=== PATIENT | male | born 1985 | race Caucasian/White ===

== ENCOUNTER 2019-10-01 20:02 | Emergency (ER) | payer OTHER, SELFPAY ==
[2019-10-01 20:11] VITALS: BP 165/106; PULSE 56; RESP 14; TEMP 36.2; O2SAT 98; BMI 30.9
--- NOTE | 2019-10-01 20:16 | W.ED.ABDPA2 ---
HPI - Abdominal Pain General: Chief Complaint: Abdominal Pain Stated Complaint: abd pain Time Seen by Provider: 10/01/19 20:16 Source: patient Mode of arrival: ambulatory Limitations: no limitations History of Present Illness: HPI narrative: Patient comes in with 2-hour onset of sudden right flank pain radiating into the right groin. Patient also reported significant nausea and vomiting. Patient appears mildly unwell. Patient appears in moderate to severe pain. Review of Systems General: Reports: 10 or more systems reviewed and unremarkable except in HPI and below : Reports: flank pain Physical Exam Const: COMMON NORMALS: no acute distress and patient oriented x3 GENERAL APPEARANCE: cooperative HENMT: COMMON NORMALS: normocephalic and Normal external nose present HEAD & SCALP: normal to inspection and normocephalic NOSE: Normal external nose present MOUTH: Normal oral and palatal mucosa present Eye: GENERAL EYE: appearance normal, both eyes and all related structures Neck/C-Spine: COMMON NORMALS: full ROM Chest: COMMONS NORMALS: normal inspection of the chest Resp: COMMON NORMALS: normal respiratory effort EFFORT & INSPECTION: Yes able to speak in complete sentences Cardio: COMMON NORMALS: regular rate and regular rhythm RATE: regular rate RHYTHM: regular rhythm GI: COMMON NORMALS: non-tender : BLADDER/KIDNEY EXAM: Yes CVA tenderness on the right Back/Pelvis: COMMON NORMALS: thoracic and lumbar spine normal to inspection GENERAL BACK: Yes CVA tenderness Extremity: COMMON NORMALS: normal to inspection Neuro: COMMON NORMALS: patient oriented x3 and moves all extremities Psych: COMMON NORMALS: mental status grossly normal and cooperative Skin: COMMON NORMALS: no rashes or lesions noted GENERAL SKIN EXAM: no rashes or lesions noted Course Vital Signs: Vital signs: Vital Signs Temperature 97.2 F L 10/01/19 20:11 Pulse Rate 56 L 10/01/19 20:11 Respiratory Rate 18 10/01/19 20:47 Blood Pressure 165/106 10/01/19 20:11 Pulse Oximetry 98 10/01/19 20:47 MDM - Abdominal Pain MDM Narrative: Medical decision making narrative: Patient presents today with complaints of right flank pain radiating into the groin. Patient appears classic for a renal calculi. Differential diagnosis includes but not limited to renal calculi, pyelonephritis, appendicitis. Laboratory values noted a 16,000 white count urine was positive for blood, creatinine was 1.0. CT scan of the abdomen pelvis noted a 2 to 3 mm renal stone in the distal right ureter. Patient had good relief of pain with 4 mg of morphine, 15 mg Toradol, and 4 mg of Zofran IV. Patient was given 500 mils of saline due to nausea and vomiting at home. Recommended patient to continue pushing fluids and follow-up with urologist. Patient reports understanding of care plan and need for follow-up. Lab Data: Labs: Lab Results 10/01/19 10/01/19 10/01/19 Range/Units 20:32 20:32 20:33 WBC 16.8 H (4.0-10.0) 10^3/ uL RBC 5.30 (4.1-5.3) 10^6/u L Hgb 14.8 (11.7-16.6) g/dL Hct 45.5 (42.0-52.0) % MCV 85.8 (80-94) fL MCH 27.9 L (28.0-34.0) pg MCHC 32.5 (30.0-36.0) g/dL RDW 11.9 L (12.1-15.1) % Plt Count 441 H (130-400) 10^3/c mm MPV 9.0 (7.4-10.4) fL Neut % (Auto) 85.9 % Lymph % (Auto) 6.5 % [place] % (Auto) 6.3 % Eos % (Auto) 0.0 % Baso % (Auto) 0.5 % Neut # (Auto) 14.46 H (1.8-7.7) 10^3/u L Lymph # (Auto) 1.1 (0.8-4.8) 10^3/u L [place] # (Auto) 1.1 H (0.2-0.9) 10^3/u L Eos # (Auto) 0.0 (0.0-0.8) 10^3/u L Baso # (Auto) 0.1 (0.0-0.1) 10^3/u L Nucleated RBC % (a uto) 0 % Nucleated RBCs # 0.0 /100WBC Sodium 138 (136-145) mmol/L Potassium 3.9 (3.5-5.1) mmol/L Chloride 103 (98-107) mmol/L Carbon Dioxide 24 (22-29) mmol/L Anion Gap 14.9 (5-19) BUN 18 (6-20) mg/dL Creatinine 1.0 (0.7-1.2) mg/dL GFR Calculation 85.5 L (90-130) mL/min Glucose 130 H (65-115) mg/dL Calculated Osmolal ity 284 L (285-295) mOsm/k g Calcium 9.4 (8.5-10.5) mg/dL Urine Color Yellow (Yellow) Urine Appearance Clear (CLEAR) Urine pH 5 (5-7) Ur Specific Gravit y 1.030 (1.005-1.030) Urine Protein Neg (Negative) Urine Glucose (UA) Norm (Normal) Urine Ketones Negative (Negative) Urine Blood 2+ H (Negative) Urine Nitrate Negative (Negative) Urine Bilirubin Neg (NEGATIVE) Urine Urobilinogen Norm (Negative) mg/dL Ur Leukocyte Amanda ase Negative (Negative) Urine RBC 0-4 H (0-2) /hpf Urine WBC 0-4 H (0-5) /hpf Ur Squamous Epith Cells 0-4 H (0-5) Calcium Oxalate Cr ystal 5-10 H /hpf Amorphous Sediment Not Reportable Urine Bacteria Trace (NONE) Discharge Plan Discharge Patient Disposition: Home Clinical Impression: Calculus of kidney Condition: Stable Prescriptions: New hydrocodone-acetaminophen 5-325 mg tablet 1 tab PO Q6H PRN (Reason: pain) Qty: 20 RF: 0 tamsulosin 0.4 mg capsule 0.4 mg PO DAILY Qty: 10 RF: 0 ondansetron HCl 4 mg tablet 4 mg PO Q8H PRN (Reason: nausea and vomiting) Qty: 10 RF: 0 Discharge Orders: Discharge Order (Routine); Ordered 10/01/19 Ordered By: Sixto Navarro Referrals: Alec Gracia DO [Primary Care Provider] - Discharge Diet: Usual diet Discharge Activity: Increase activity as tolerated Patient Instructions: Renal Colic (ED) Activity Restrictions/Additional Instructions: Home and rest. Drink plenty of fluids. Use medications as directed. Follow-up with Dr. Sow's office in the morning. Case management will contact Dr. Sow office to help with follow-up. Follow-up with primary care as needed. Return to the emergency department for high fever or uncontrolled pain. Stand Alone Forms: Work/School Release Coding Level of Care Code ED Plastic Surgery Specialist for Chg Fwd Exam Comprehensive
[2019-10-01] MEDS: ketorolac 30 mg/mL INJ 15 MG IVP (20:30)
[2019-10-01] MEDS: ondansetron 2 mg/ML SDV 2 mL 4 MG IVP (20:30)
[2019-10-01] MEDS: sodium chloride 0.9% 500 ML 999 ML IV (20:31)
--- NOTE | 2019-10-01 20:34 | CTR_ITS ---
PROCEDURE INFORMATION: Exam: CT Abdomen And Pelvis Without Contrast Exam date and time: 10/01/2019 8:37 PM Age: 33 years old Clinical indication: Nausea and vomiting; Abdominal pain; Flank; Right; Prior surgery; Surgery type: Hernia; Additional info: Right flank pain TECHNIQUE: Imaging protocol: Computed tomography of the abdomen and pelvis without contrast. Radiation optimization: All CT scans at this facility use at least one of these dose optimization techniques: automated exposure control; mA and/or kV adjustment per patient size (includes targeted exams where dose is matched to clinical indication); or iterative reconstruction. COMPARISON: No relevant prior studies available. RADIATION DOSE METRICS: Total DLP (mGy-cm): 1878.4 FINDINGS: Lungs: Calcified granuloma in the right lung base. Liver: Diffuse fatty infiltration of the liver. Gallbladder and bile ducts: Normal. No calcified stones. No ductal dilation. Pancreas: Normal. No ductal dilation. Spleen: Normal. No splenomegaly. Adrenals: Normal. No mass. Kidneys and ureters: 2-3 mm calculus at the right ureterovesical junction. Mild columning of the right ureter and mild right hydronephrosis. Multiple nonobstructing left renal calculi measuring up to 5 mm. Stomach and bowel: Unremarkable. No obstruction. No mucosal thickening. Appendix: The appendix is normal. Intraperitoneal space: Unremarkable. No free air. No significant fluid collection. Vasculature: Unremarkable. No abdominal aortic aneurysm. Lymph nodes: Unremarkable. No enlarged lymph nodes. Bladder: Unremarkable as visualized. Reproductive: Unremarkable as visualized. Bones/joints: Unremarkable. No acute fracture. Soft tissues: Small fat containing right inguinal hernia. CT/CT kidney stone [id number] IMPRESSION: 1. 2-3 mm obstructing calculus at the right ureterovesical junction with mild right hydronephrosis. 2. Left nephrolithiasis. Radiation Dose CTDIVOL = (mGy): DLP = 1878.4 (mGy-cm)
[2019-10-01 20:38] LABS: Basophils # 0.1 10^3/uL (0.0-0.1); Basophils % 0.5 %; Hematocrit 45.5 % (42.0-52.0); Hemoglobin 14.8 g/dL (11.7-16.6); Lymphocytes # 1.1 10^3/uL (0.8-4.8); Lymphocytes % 6.5 %; Mean Corpuscular HGB Conc 32.5 g/dL (30.0-36.0); Mean Corpuscular Hemoglobin 27.9 pg (28.0-34.0); Mean Corpuscular Volume 85.8 fL (80-94); Monocytes # 1.1 10^3/uL (0.2-0.9); Monocytes % 6.3 %; Neutrophils # 14.46 10^3/uL (1.8-7.7); Neutrophils % 85.9 %; Nucleated Red Blood Cells % 0 %; Platelet Count 441 10^3/cmm (130-400); Red Cell Distribution Width 11.9 % (12.1-15.1); White Blood Count 16.8 10^3/uL (4.0-10.0)
[2019-10-01 20:47] VITALS: RESP 18; O2SAT 98
[2019-10-01] MEDS: morphine 4 mg/mL SDV 1 mL IVP ×2 (20:47→22:03)
[2019-10-01 21:15] LABS: Anion Gap 14.9 (5-19); Blood Urea Nitrogen 18 mg/dL (6-20); Calcium 9.4 mg/dL (8.5-10.5); Carbon Dioxide 24 mmol/L (22-29); Chloride 103 mmol/L (98-107); Glomerular Filtration Rate 85.5 mL/min (90-130); Glucose 130 mg/dL (65-115); Osmolality Calculated 284 mOsm/kg (285-295); Potassium 3.9 mmol/L (3.5-5.1); Sodium 138 mmol/L (136-145)
[2019-10-01 21:27] LABS: Bacteria Urine TRACE; Bilirubin Urine Neg (NEGATIVE); Blood Urine 2+ (Negative); Glucose Urine UA Norm (Normal); Ketones Urine Negative (Negative); Leukocyte Esterase Urine Negative (Negative); Nitrate Urine Negative (Negative); Protein Urine Neg (Negative); RBC Urine 0-4 /hpf (0-2); Squamous Epithelial Cell Urine 0-4 (0-5); Urine Appearance Clear (CLEAR); Urine Color Yellow (Yellow); Urobilinogen Urine Norm (Negative); WBC Urine 0-4 /hpf (0-5); pH Urine 5 (5-7)
[2019-10-01] MEDS: HYDROcodone-acetaminophen 5-325 mg Tablet 2 TAB PO (22:01)
[2019-10-01] MEDS: ondansetron 4 MG Tablet PO (22:02)
[2019-10-01 22:03] VITALS: RESP 18; O2SAT 98
[2019-10-01 22:12] VITALS: BP 136/90; PULSE 82; RESP 18; O2SAT 97
--- NOTE | 2019-10-02 09:47 | DCPLANNER ---
group manager had message to schedule a follow up appointment for patient with Dr. Jensen office. group manager called the office of Dr. Sow, block and case maker spoke with Mirtha. group manager was told that patients information would be printed and given to Shonda for review. Clinic will call patient with appointment information.
--- NOTE | 2019-10-03 11:00 | DCPLANNER ---
software quality manager called the office of Dr. Sow, spoke with Elisa to confirm that a follow up appointment had been scheduled for patient, hospice case manager was told that patient cancelled appointment at this time.
== END 2019-10-01 22:17 | disposition home or self-care (01) ==
PROVIDERS: Emergency Medicine; Emergency Provider Nurse Practitioner Family; PCP Electrodiagnostic Medicine
DX: N20.0 Calculus of kidney (principal)
CPT/HCPCS: 12345; 36415; 74176; 80048; 81001; 85025; 96374; 96375; 96376; 99282; 99284; J1885; J2270; J2405; J7040; Q0162

== ENCOUNTER → 2022-11-21 10:08 | Outpatient (BNVA) | payer OTHER, SELFPAY | PROVIDERS: PCP Electrodiagnostic Medicine; Visit Provider Nurse Practitioner | DX: S62.397A Other fracture of fifth metacarpal bone, left hand, initial encounter for closed fracture (principal); X58.XXXA Exposure to other specified factors, initial encounter | CPT/HCPCS: 73130 ==

== ENCOUNTER 2023-01-12 23:31 | Emergency (ER) | payer OTHER, SELFPAY ==
--- NOTE | 2023-01-12 23:34 | XRR_ITS ---
PROCEDURE INFORMATION: Exam: XR Left Knee Exam date and time: 01/12/2023 11:43 PM Age: 37 years old Clinical indication: Injury or trauma; Other: Blunt trauma; Left; Patient HX: Patient struck by cow to anterior aspect of knee. TECHNIQUE: Imaging protocol: Radiologic exam of the left knee. Views: 3 views. COMPARISON: No relevant prior studies available. FINDINGS: Bones/joints: Small joint effusion. No fracture. Soft tissues: Normal. XR/XR knee LT 3V* [id number] IMPRESSION: 1. Small joint effusion. 2. No fracture.
[2023-01-12 23:42] VITALS: BP 168/108; PULSE 88; RESP 20; TEMP 36.8; O2SAT 95; BMI 26.4
--- NOTE | 2023-01-12 23:51 | W.ED.EXTPRO ---
HPI - Extremity Problem General: Chief complaint: Extremity Injury, Lower Stated complaint: L knee injury Time Seen by Provider: 01/12/23 23:42 History of Present Illness: 37-year-old male patient comes in today with injury to the left knee. 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 Patient states that at night the pain increases and becomes intolerable. Patient is able to ambulate with pain. Patient reports some mild swelling. Patient appears nontoxic. Patient appears no acute distress. Patient does have a history of prior knee injury. Review of Systems General: Reports: 10 or more systems reviewed and unremarkable except in HPI and below Musc: Reports: joint pain (Left knee) Physical Exam Const: COMMON NORMALS: alert HENMT: COMMON NORMALS: normocephalic HEAD & SCALP: normocephalic Neck/C-Spine: COMMON NORMALS: full ROM Resp: COMMON NORMALS: normal respiratory effort Cardio: COMMON NORMALS: regular rate RATE: regular rate Back/Pelvis: COMMON NORMALS: thoracic and lumbar spine normal to inspection Extremity: LEFT LOWER EXTREMITY: Yes knee joint (Anterior joint line tenderness of the knee.) Left knee: Yes inspection (No swelling), Yes palpation (Tender) and Yes ROM (Decreased range of motion due to pain) Neuro: SENSORIUM/ORIENTATION: Yes alert Skin: COMMON NORMALS: turgor normal GENERAL SKIN EXAM: turgor normal Course Vital Signs: Vital signs: Vital Signs Temperature 98.2 F 01/12/23 23:42 Pulse Rate 88 01/12/23 23:42 Respiratory Rate 20 H 01/12/23 23:42 Blood Pressure 168/108 01/12/23 23:42 Pulse Oximetry 95 01/12/23 23:42 Oxygen Delivery Me thod Room Air 01/12/23 23:42 MDM - Extremity (Nontraumatic) Medical Decision Making 37-year-old male patient comes in today for evaluation of injury to the left knee that occurred on Sunday evening. On exam patient has some anterior tenderness to the along the joint line. No significant swelling or redness was noted. Decreased range of motion due to pain. Vital signs are normal except for some elevated blood pressure. Differential diagnosis includes but not limited to meniscal injury, fracture, sprain, ligament tear. X-ray was unremarkable. Reviewed exam with patient with recommendations for treatment for knee sprain and repeat evaluation for further treatment. Patient reported understanding of care plan and need for follow-up or return to the ER. Case management was requested to assist patient with follow-up and repeat evaluation with orthopedics. XR interpretation done by ED provider, pending radiology final review Discharge Plan Discharge Patient Disposition: Home Clinical Impression: Strain of left knee Qualifiers: Encounter type: initial encounter Qualified Code(s): S86.912A - Strain of unspecified muscle(s) and tendon(s) at lower leg level, left leg, initial encounter Condition: Stable Prescriptions: New hydrocodone-acetaminophen 5-325 mg tablet 1 tab PO Q6H PRN (Reason: pain) Qty: 12 0RF Discontinued hydrocodone-acetaminophen 5-325 mg tablet 1 tab PO Q6H PRN (Reason: pain) Qty: 20 0RF No Action tamsulosin 0.4 mg capsule 0.4 mg PO DAILY Qty: 10 0RF ondansetron HCl 4 mg tablet 4 mg PO Q8H PRN (Reason: nausea and vomiting) Qty: 10 0RF Discharge Orders: Discharge ED (Routine); Ordered 01/13/23 Ordered By: Sixto Navarro Referrals: Bridget Sahu FNP [Primary Care Provider] - Discharge Diet: Usual diet Discharge Activity: Increase activity as tolerated Patient Instructions: Knee Sprain (ED) Activity Restrictions/Additional Instructions: Activity as tolerated. Use acetaminophen and ibuprofen to control pain. Use hydrocodone for severe pain. Do not operate equipment or tools that would put yourself or others at danger for at least 8 hours after taking hydrocodone. Follow-up with primary care or employee health doctor as directed. resource development manager will contact you regarding follow-up with orthopedics for further evaluation. Return to ED for new concerns. Coding Level of Care Code ED Senior Coldfusion Developer for Anders Weber
[2023-01-13 00:27] VITALS: BP 168/108; PULSE 90; RESP 18; O2SAT 96
--- NOTE | 2023-01-15 10:37 | DCPLANNER ---
Message was sent to ortho on 01/15/[address] [place] [address] to contact patient
--- NOTE | 2023-01-18 11:32 | PC.SOCIAL ---
Spoke with patient regarding the need for approval from [employer] for ortho referral. He gives permission [facility] and speak with Mino regarding getting more information for insurance company. Called to office, am told that Mino is in a meeting. [employer] information providing and was told they would ask Mino to return my call.
== END 2023-01-13 00:15 | disposition home or self-care (01) ==
PROVIDERS: Emergency Provider Nurse Practitioner Family; PCP Nurse Practitioner
DX: S86.912A Strain of unspecified muscle(s) and tendon(s) at lower leg level, left leg, initial encounter (principal); W55.22XA Struck by cow, initial encounter; Y99.0 Civilian activity done for income or pay
CPT/HCPCS: 73562; 99283

== ENCOUNTER 2023-06-28 15:27 | Outpatient (CLI) | payer OTHER, SELFPAY ==
--- NOTE | 2023-06-28 15:33 | XR_ITS ---
WS: [id number] Lumbar spine, 3 views, 06/28/2023 Clinical Data: back pain Comparison: None. Findings: No compression fractures or subluxation is seen. No disc space narrowing is seen. The transverse proc esses and SI joints are normal. There is a slight levoscoliosis of the lumbar spine. XR/XR lumbar spine 2-3V* [id number] Impression: Mild lumbar levoscoliosis.
--- NOTE | 2023-06-28 15:33 | XR_ITS ---
WS: [id number] Thoracic spine, 4 views, 06/28/2023 Clinical Data: back pain Comparison: None. Findings: No compression fractures are seen. The disc heights are normal. The paravertebral regions are not remarkable. XR/XR thoracic spine 3V* [id number] Impression: Negative thoracic spine.
== END 2023-06-28 15:28 | disposition home or self-care (01) ==
LOC: RAD 15:30
PROVIDERS: PCP Nurse Practitioner; Visit Provider Physician Assistant
DX: M54.9 Dorsalgia, unspecified (principal); M41.86 Other forms of scoliosis, lumbar region
CPT/HCPCS: 72072; 72100

== ENCOUNTER 2023-07-25 11:49 | Outpatient (CLI) | payer OTHER, SELFPAY ==
--- NOTE | 2023-07-25 11:56 | MR_ITS ---
WS: [id number] MRI LUMBAR SPINE NONCONTRAST TECHNIQUE: Sagittal T1, T2 and STIR imaging. Axial T1 and T2 imaging. CLINICAL INFORMATION: LOWER BACK PAIN/RADIATING PAIN COMPARISON: None. FINDINGS: Mild lumbar curve. No acute compression. No high-grade central canal stenosis. Small cervical disc protrusion on the do all operator imaging at C5-6 with slight contact of the cervical cord. L1-L2: No significant disc bulging. Mild facet arthropathy. Spinal canal and foramen are patent. L2-L3: No significant disc bulging. Mild facet arthropathy. Spinal canal and foramen are patent. L3-L4: Mild annular bulging. Mild facet arthropathy. Spinal canal and foramen are patent. L4-L5: Mild annular bulging. Mild facet arthropathy. Slight effacement of the thecal sac. Spinal aubrey l and foramen are patent. L5-S1: Tiny shallow central protrusion. Slight effacement of the ventral thecal sac. Spinal canal and foramen are patent. Moderate facet arthropathy. Visualized pelvic bony structures: Normal. Paravertebral soft tissues: Normal. MR/MR lumbar spine wo con* [id number] IMPRESSION: 1. Mild lumbar curve. No acute compression. No high-grade central canal stenos is. 2. Mild annular bulging L3-L4 and L4-L5 with slight effacement of the ventral thecal sac. Spinal canal is patent. 3. Tiny shallow central protrusion L5-S1. 4. Mild to moderate facet arthropathy L3-L5. 5. Disc protrusion in the cervical spine on the do all operator imaging with slight inde ntation of the cervical cord at C5-6. This can be further evaluated with cervic al spine MRI.
== END 2023-07-25 11:50 | disposition home or self-care (01) ==
LOC: RAD 11:50
PROVIDERS: PCP Nurse Practitioner; Visit Provider Family Medicine
DX: M50.20 Other cervical disc displacement, unspecified cervical region (principal); M47.896 Other spondylosis, lumbar region
CPT/HCPCS: 72148

== ENCOUNTER 2024-12-07 18:21 | Emergency (ER) | payer OTHER, SELFPAY ==
--- OUTSIDE RECORDS SUMMARY | 2024-12-05 06:00 | XMS_ITS ---
Author Organization [facility] Address [address] [place] [address] Care Team Providers Care Founder And Ceo Name Role Phone Marilee León [phone] Results Component Value Reference Range Notes Urine Drug Screen (cup read) - 89977 Reviewed date:12/05/2024 11:23:25 AM Interpretation:Negative Performing Lab: Notes/Report: Negative REASON FOR VISIT [id number]; 2 Months. UDS. Medications Medication SIG (Take, Route, Frequency, Duration) Notes Start Date End Date Status traMADol HCl 50 MG Tablet 1 tablet as needed Orally Once a day Active traMADol HCl 50 MG Tablet 1 tablet Orally Every 4 hrs; Duration: 30 days As needed Do not exceed 5 tabs per day Fill on 10/06/2024 10/07/2024 Active Gabapentin 300 MG Capsule 1 capsule as needed Orally daily; Duration: 30 days Fill 30 days from previous Rx 10/07/2024 Active Lisinopril 10 MG Tablet 1 tablet Orally Once a day Active Social History Social History Additional Details Category Social Info Options Details Miscellaneous: 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 De nies Do you drink alcohol? Socially Vital Signs Height 73 in 12/05/2024 Weight 238 lbs 12/05/2024 BMI 31.4 kg/m2 12/05/2024 Height-cm 185.42 cm 12/05/2024 Weight-kg 107.96 kg 12/05/2024 Encounters Encounter Location Date Provider Diagnosis [facility] [address] [place] [address] 12/05/2024 Marilee León Chronic pain syndrom e G89.4 ; Lumbar radiculopathy M54.16 ; Lumbar spondylosis M47.816 and Analgesic use Z79.899 Assessments Encounter Date Diagnosis (ICD Code) Assessment Notes Treatment Notes Treatment Clinical Notes Section Notes 12/05/2024 Chronic pain syndrome (ICD-10 - G89.4) I had a long discussion with the patient and his today regarding his chronic pain complaints. He is status post LESI at L5-S1 which he states helped relieve his pain at least 50% and he is functioning much better overall. He is having some pain and radicular symptoms a little higher up around the L2-3 dermatomal distribution. I did review his most recent imaging with him again today. After discussion, we will get him set up for another LESI at the L2-3 level. Prior to this it had been quite sometime since he had had any sort of steroid injections. He does understand after this we will space these injections out at least 3 months. He is also having some neuraxial lower back pain and does have facet arthropathy. We will get him set up for bilateral lumbar medial branch blocks x 2 at L4-5 and L5-S1. We also discussed home exercise program for his lower back. Exercises were given to the patient to do at home. He is having some thoracic pain as well and may want to address this at another visit. He will continue his medication at present level and return to clinic after procedure to monitor for treatment effectiveness and compliance. The patient continues with chronic pain requiring treatment to help restore function and improve quality of life. Risks of opioid therapy as well as interaction of opioids with alcohol, illicit drugs, muscle relaxers, and other sedative medications are reviewed briefly with patient again today. The patient has trialed all other reasonable treatment options and uses the medication to alleviate pain in order to remain active and rest with less pain. No clinically relevant medication side effects are noted. 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 Patient is advised that best long-term goals include increased activity, core strengthening, proper weight management, coping strategies, avoidance of painful triggers, and targeted interventional therapy. We will see the patient for routine follow up in accordance with all clinic policies. We did remind patient today of current guidelines to decrease opioid when possible. We will continue to stress nonopioid treatment. URINE TESTING TODAY; POINT OF SERVICE Urine drug screening will be performed today to monitor compliance with opioid therapy or to serve as a baseline screen for a patient who may be a candidate for opioid therapy in the future, pending UDS results. We will monitor with in-office testing (rapid testing) today and review the results prior to dispensing prescription, as well. Patient has been made aware of this policy. 12/05/2024 HEP Logs were given 12/05/2024 Lumbar radiculopathy (ICD-10 - M54.16) RECOMMEND THERAPEUTIC LUMBAR EPIDURAL STEROID INJECTION, levels L2-3 The patient reports overall 50% improvement in function and decrease in pain for greater than one month from previous diagnostic CAMILO. The patient also reports improvement in tolerance to activities which generally cause pain. Based on the results of previous diagnostic CAMILO, a therapeutic CAMILO is recommended. Expectation from a successful therapeutic epidural steroid injection is at least 50-70% relief of pain from baseline and evidence of improved function for at least six to eight weeks after delivery. The goal of epidural steroid injections is to reduce pain and inflammation, restoring range of motion and, thereby, facilitating progress in more active treatment programs, and avoiding surgery. The procedure and risks were discussed with the patient including but not limited to infection, bleeding, neurological complications, side effects from medications, no change in pain, worsening of pain, or even . We also discussed conservative options, surgical options, and medical management with patient as well. The patient indicates understanding and wishes to proceed with the recommended treatment approach. The patient was given written information about the procedure and all questions were answered. 12/05/2024 Lumbar spondylosis (ICD-10 - M47.816) RECOMMEND DIAGNOSTIC MEDIAL BRANCH BLOCK, levels L4-S1 The patient has an ongoing nonradicular pain component as described above, which we believe could be facet joint mediated. The pain has failed to respond to rest, activity modification NSAIDs therapy, physical therapy, and current prescription medications. Therefore, a diagnostic medial branch block is recommended. Diagnostic medial branch blocks are indicated to determine the source of pain because there is a discrepancy between pathology and complaints, and it is unclear whether patient's pain is central or peripheral in origin. The patient understands that 80% relief is received for a short time in order to be considered successful. If patient has two positive response diagnostic medial branch blocks, then rhizotomy will be considered. If the diagnostic medial branch blocks do not help at least 80%, then patient understands to not proceed with rhizotomy. Patient and provider understand and agree that, per [facility] LCD, medial branch blocks will be performed with a minimum interval of two weeks. The procedure and risks were discussed with the patient including but not limited to infection, bleeding, neurological complications, side effects from medications, no change in pain, worsening of pain, or even . We also discussed conservative options, surgical options, and medical management with patient as well. The patient indicates understanding and wishes to proceed with the recommended treatment approach. The patient was given written information about the procedure and all questions were answered. 12/05/2024 Analgesic use (ICD-10 - Z79.899) Plan Of Treatment Treatment Notes Assessment Notes Chronic pain syndrome I had a long discussion with the patient and his today regarding his chronic pain complaints. He is status post LESI at L5-S1 which he states helped relieve his pain at least 50% and he is functioning much better overall. He is having some pain and radicular symptoms a little higher up around the L2-3 dermatomal distribution. I did review his most recent imaging with him again today. After discussion, we will get him set up for another LESI at the L2-3 level. Prior to this it had been quite sometime since he had had any sort of steroid injections. He does understand after this we will space these injections out at least 3 months. He is also having some neuraxial lower back pain and does have facet arthropathy. We will get him set up for bilateral lumbar medial branch blocks x 2 at L4-5 and L5-S1. We also discussed home exercise program for his lower back. Exercises were given to the patient to do at home. He is having some thoracic pain as well and may want to address this at another visit. He will continue his medication at present level and return to clinic after procedure to monitor for treatment effectiveness and compliance. The patient continues with chronic pain requiring treatment to help restore function and improve quality of life. Risks of opioid therapy as well as interaction of opioids with alcohol, illicit drugs, muscle relaxers, and other sedative medications are reviewed briefly with patient again today. The patient has trialed all other reasonable treatment options and uses the medication to alleviate pain in order to remain active and rest with less pain. No clinically relevant medication side effects are noted. 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 Patient is advised that best long-term goals include increased activity, core strengthening, proper weight management, coping strategies, avoidance of painful triggers, and targeted interventional therapy. We will see the patient for routine follow up in accordance with all clinic policies. We did remind patient today of current guidelines to decrease opioid when possible. We will continue to stress nonopioid treatment. URINE TESTING TODAY; POINT OF SERVICE Urine drug screening will be performed today to monitor compliance with opioid therapy or to serve as a baseline screen for a patient who may be a candidate for opioid therapy in the future, pending UDS results. We will monitor with in-office testing (rapid testing) today and review the results prior to dispensing prescription, as well. Patient has been made aware of this policy. Lumbar radiculopathy RECOMMEND THERAPEUTIC LUMBAR EPIDURAL STEROID INJECTION, levels L2-3 The patient reports overall 50% improvement in function and decrease in pain for greater than one month from previous diagnostic CAMILO. The patient also reports improvement in tolerance to activities which generally cause pain. Based on the results of previous diagnostic CAMILO, a therapeutic CAMILO is recommended. Expectation from a successful therapeutic epidural steroid injection is at least 50-70% relief of pain from baseline and evidence of improved function for at least six to eight weeks after delivery. The goal of epidural steroid injections is to reduce pain and inflammation, restoring range of motion and, thereby, facilitating progress in more active treatment programs, and avoiding surgery. The procedure and risks were discussed with the patient including but not limited to infection, bleeding, neurological complications, side effects from medications, no change in pain, worsening of pain, or even . We also discussed conservative options, surgical options, and medical management with patient as well. The patient indicates understanding and wishes to proceed with the recommended treatment approach. The patient was given written information about the procedure and all questions were answered. Lumbar spondylosis RECOMMEND DIAGNOSTIC MEDIAL BRANCH BLOCK, levels L4-S1 The patient has an ongoing nonradicular pain component as described above, which we believe could be facet joint mediated. The pain has failed to respond to rest, activity modification NSAIDs therapy, physical therapy, and current prescription medications. Therefore, a diagnostic medial branch block is recommended. Diagnostic medial branch blocks are indicated to determine the source of pain because there is a discrepancy between pathology and complaints, and it is unclear whether patient's pain is central or peripheral in origin. The patient understands that 80% relief is received for a short time in order to be considered successful. If patient has two positive response diagnostic medial branch blocks, then rhizotomy will be considered. If the diagnostic medial branch blocks do not help at least 80%, then patient understands to not proceed with rhizotomy. Patient and provider understand and agree that, per CMS LCD, medial branch blocks will be performed with a minimum interval of two weeks. The procedure and risks were discussed with the patient including but not limited to infection, bleeding, neurological complications, side effects from medications, no change in pain, worsening of pain, or even . We also discussed conservative options, surgical options, and medical management with patient as well. The patient indicates understanding and wishes to proceed with the recommended treatment approach. The patient was given written information about the procedure and all questions were answered. Future Test Test Name Order Date Epidural, Lumbar/Sacral (Caudal), w/ onofre ging guidance - [id number] 12/08/2024 Facet Inj. / MBB Lumbar/Sacral, 2 levels - 68514, 87095 12/09/2024 Facet Inj. / MBB Lumbar/Sacral, 2 levels - 34398, 20200 12/10/2024 Next Appt Details Follow Up: , Reason: after p rocedure History and Physical Notes * HPI (History of Present Illness) Category Sub-Category Detail Notes Category Not es Pain Details Pain Location Neck,Headaches,M id-Back,Left Knee,Lower Back Duration Greater than 1 year Onset Injury from Dec Frequency of Pain Constant Quality Sharp/Stabbing,Dull/ Ache,Burn/Tingle Severity of pain at its worst 5 Severity of pain at its best 3 Severity of average pain 5 Severity of pain right now 2 Worsening factors Increased activity, bending, twisting, house chores Relieving factors Medication, Rest, So metimes nothing else Associated symptoms Insomnia, Weakness, Tingling Severity of pain on medication 1 When did you last take your pain medicin e 12/03/2024 Opioid Assessment Tools Pill Count D/B Last Urine Drug Screen 10/07/2024 conf Today's Rapid Urine Drug Screen 12/06/19 25 cup [facility] found to be consistent with treatment history, reviewed today Treatment History Caregivers you have visited [facility] Test undergone in the past MRI scan or C T scan, X-rays Past medication you have taken NSAIDs; i buprofen, Aleve, Tylenol, sports creams Treatments you have had Rest, ice, heat, stretching, position changes, sogj-cwe-pyrutwz medications, heating pad Were prior treatments of any help? No Examination Category Sub-Category Detail Notes Category Not es General Examination General patient is w ell developed, well-nourished, alert and oriented, has good hygiene ENT oral mucosa moist an d pink Eyes pupils are equal, ro und and reactive to light, sclera/conjuctiva normal Respiratory breath sounds are eq ual bilaterally, there is no wheezing Lumbar Spine Palpation of Lumbar Spine reveal s hyperextension of lumbar spine and bilateral palpitation of lumbar facets reproduces back pain Palpation of Lumbar Intervertebral Space (Discs) there is no pain noted Bilateral Palpation of Sacroiliac Joint reveals no pain Palpation of Greater Trochanteric Bursa reveals no tenderness on both sides Musculoskeletal - Low Back Muscles Trigger Point s no palpable trigger points are noted Gaenslen's Test Negative Neurological Mental Status awake, oriented to person, oriented to place, oriented to time, memory intact, mood and affect are normal Motor Strength Left UE strength - Flexors: 5/5 Right UE strength - Flexors: 5/5 Left UE strength - Extensors: 5/5 Right UE strength - Extensors: 5/5 Left UE Tone: normal Right UE Tone: normal Left LE strength - Flexors: 5/5 Right LE strength - Flexors: 5/5 Left LE strength - Extensors: 5/5 Right LE strength - Extensors: 5/5 Left LE Tone: normal Right LE Tone: normal Progress Notes * Jesika OLIVASy SDOB: [birth year] (39 yo M)Acc No.[id number]:12/05/2024 Progress Notes Patient: Valerie Macias Provider: TOYA Juárez :1985 A ge:39 Y S ex:Male Date:12/05/2024 Address:[address] [place], [place] [id number] 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 UDS. * HPI: P ain Details: Pain Location N [place],Headaches,Mid-Back,Left Knee,Lower Back. Duration G reater than 1 year. Onset I njury from Jan 14, 2023. Frequency of Pain C onstant. Quality S harp/Stabbing,Dull/Ache,Burn/Tingle. Severity of pain at its worst 5 . Severity of pain at its best 3 . Severity of pain on medication 1 . Severity of average pain 5 . Severity of pain right now 2 . Worsening factors I ncreased activity, bending, twisting, house chores. Relieving factors M edication, Rest, Sometimes nothing else. Associated symptoms I nsomnia, Weakness, Tingling. When did you last take your pain medicine 1 . O pioid Assessment Tools: Pill Count D /B. Last Urine Drug Screen 0 10/07/2024 conf. Today's Rapid Urine Drug Screen 1 cup. [facility] f ound to be consistent with treatment history, reviewed today. T reatment History: [facility] Test undergone in the past M RI scan or CT scan, X-rays.? Past medication you have taken N SAIDs; ibuprofen, Aleve, Tylenol, sports creams. Treatments you have had R est, ice, heat, stretching, position changes, wihl-rrj-wadsooj medications, heating pad. Were prior treatments of any help? N regulo landa Note: 12/05/2024 Patient presents today for follow-up status post LESI at L5-S1. He states this helped relieve his pain greater than 50% and he is functioning much better overall. He continues with tramadol 50 mg 5/day and gabapentin 300 mg daily which is working reasonably well for him. He continues with lower back pain which appears to be mainly facet mediated however he does occasionally have some radicular component to his pain. His last UDS is consistent. UDS at tspfk-ct-tggm today is consistent. Pill count is accurate today. PDMP was reviewed and found to be compliant with care. 10/07/2024 The patient presents today for a 1 month follow-up. He continues with lower back pain as well as radicular symptoms. He continues awaiting LESI. He states if insurance is not going to pay for it he is wanting to pay donahue pay. He continues with tramadol 50 mg 5/day and gabapentin 300 mg daily which is working reasonably well for him. His last UDS was consistent. UDS at iyorq-ii-noif today is consistent. He is out of his medication today which is consistent with fill date. PDMP was reviewed and found to be compliant with care. 09/05/2024 The patient presents today for 1 month follow-up. He continues with lower back pain as well as radicular symptoms. This pain is making it difficult for him to function well and sleep very well. He is awaiting LESI. He continues with tramadol 50 mg 5/day and gabapentin 300 mg daily which is working reasonably well for him. His last UDS was consistent. UDS was collected today and will be sent to lab for reference. We will review results with patient at next visit. He forgot to bring his medication today but was reminded to do so at every visit. PDMP was reviewed and found to be compliant with care. 08-06-24: Patient is a 38-year-old male who presents to [facility]. We have a history of low back pain. 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 It does radiate into the legs at times bilaterally, he notes a tingling pain into the LEs which affects his sleep significantly. They describe the pain as a shooting, stabbing, sharp, tender, aching, euww-otx-zphoyam type pain. It is worse with increased activity, bending and twisting as well as lifting. It improves with rest and medications. He has not been to a pain clinic in the past. Has not had injections for pain in the past. He has not been through physical therapy recently. He has seen a chiropractor at [facility] which he does find somewhat helpful. He has not used a TENS unit. He currently takes tramadol 100 mg 2-3 times daily as needed. He finds this relatively effective. Denies any history of back surgery. Denies any recent changes in numbness or tingling. Denies any recent bowel or bladder changes. Lumbar MRI from July 2023 is available for review. L1-2 and L2-3 have mild facet arthropathy but no significant stenosis. L3-4 has a mild annular bulge and mild facet arthropathy without stenosis. L4-5 is a mild annular bulge and mild facet arthropathy with trace narrowing. L5-S1 has a small central protrusion with trace narrowing at that spot. There is moderate facet arthropathy noted at that level. There were no significant areas of stenosis. * ROS: G eneral/Constitutional: Fatigue/Tiredness R eports. F ever D enies. R ecent weight gain R eports. R ecent weight loss D enies. R espiratory: Cough D enies. W heezing D enies. S hortness of breath D enies. G astrointestinal: Abdominal pain D enies. C onstipation D enies. N ausea D enies. V omiting D enies. P sychiatric: Anxiety R eports. D epression R eports. S uicidal thoughts D enies. P anic Attacks D enies. * Screening: * COMM - Current Opioid Misuse Measure: D ocumented By: Lluvia Alexander core: 6?Interpretation: Score indicates low risk of abuse behaviors C OMM - Current Opioid Misuse Measure How often have you had trouble with thinking clearly or had memory problems?SeldomHow often do people complain that you are not completing necessary tasks? (i.e., doing things that need to be done, such as going to class, work or appointments)SeldomHow often have you had to go to someone other than your prescribing physician to get sufficient pain relief from medications? (i.e., another doctor, the Emergency Room, friends, street sources)NeverHow often have you taken your medications differently from how they are prescribed?SeldomHow often have you seriously thought about hurting yourself?NeverHow much of your time was spent thinking about opioid medications (having enough, taking them, dosing schedule, etc.)?NeverHow often have you been in an argument?SeldomHow often have you had trouble controlling your anger (e.g., road rage, screaming, etc.)?NeverHow often have you needed to take pain medications belonging to someone else?NeverHow often have you been worried about how you're handling your medications?NeverHow often have others been worried about how you're handling your medications?NeverHow often have you had to make an emergency phone call or show up at the clinic without an appointment?NeverHow often have you gotten angry with people?SometimesHow often have you had to take more of your medication than prescribed?NeverHow often have you borrowed pain medication from someone else?NeverHow often have you used your pain medicine for symptoms other than for pain (e.g., to help you sleep, improve your mood, or relieve stress)?NeverHow often have you had to visit the Emergency Room?Never * Medical History: Kidney stones Medical History Verified * Social History: D rugs/Alcohol: D o you smoke marijuana?: Denies. Do you drink alcohol?: Socially. 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 S ocial History Verified. * Medications: T akingGabapentin 300 MG Capsule 1 capsule as needed Orally daily , Notes to Pharmacist: Fill 30 days from previous RxLisinopril 10 MG Tablet 1 tablet Orally Once a day traMADol HCl 50 MG Tablet 1 tablet as needed Orally Once a day traMADol HCl 50 MG Tablet 1 tablet Orally Every 4 hrs As needed Do not exceed 5 tabs per day, Notes to Pharmacist: Fill on 10/06/2024Medication List reviewed and reconciled with the patientTaking Gabapentin 300 MG Capsule 1 capsule as needed Orally daily , Notes to Pharmacist: Fill 30 days from previous RxTaking Lisinopril 10 MG Tablet 1 tablet Orally Once a day Taking traMADol HCl 50 MG Tablet 1 tablet as needed Orally Once a day Taking traMADol HCl 50 MG Tablet 1 tablet Orally Every 4 hrs As needed Do not exceed 5 tabs per day, Notes to Pharmacist: Fill on 10/06/2024Medication List reviewed and reconciled with the patient * Allergies: y esAllergies Verified. Objective: * Vitals: H t: 73 in, Wt:238lbs, Wt-k.96 kg, BMI:31.4Index, Ht-cm: 185.42 cm. * Examination: G eneral Examination: General p atient is well developed, well-nourished, alert and oriented, has good hygiene. ENT o ral mucosa moist and pink. Eyes p upils are equal, round and reactive to light, sclera/conjuctiva normal. Respiratory b reath sounds are equal bilaterally, there is no wheezing. L umbar Spine: Palpation of Lumbar Spine r eveals hyperextension of lumbar spine and bilateral palpitation of lumbar facets reproduces back pain. Palpation of Lumbar Intervertebral Space (Discs) t here is no pain noted. Bilateral Palpation of Sacroiliac Joint r eveals no pain.? Palpation of Greater Trochanteric Bursa r eveals no tenderness on both sides. M usculoskeletal - Low Back Muscles: Trigger Points n o palpable trigger points are noted. Gaenslen's Test N egative. N eurological: Mental Status a wake, oriented to person, oriented to place, oriented to time, memory intact, mood and affect are normal. Motor Strength ? Right UE strength - Flexors ? Left UE strength - E xtensors ? Right UE strength - Extensors ? Left UE Tone n ormal ? Right UE Tone n ormal ? Left LE strength - F lexors ? Right LE strength - Flexors ? Left LE strength - E xtensors ? Right LE strength - Extensors ? Left LE Tone n ormal ? Right LE Tone n ormal ? Assessment: * Assessment: 1. C hronic pain syndrome - G89.4 (Primary) 2 . L umbar radiculopathy - M54.16 3 . L umbar spondylosis - M47.816 4 . A nalgesic use - Z79.899 Plan: * Treatment: 2. L umbar radiculopathy P rocedure: Epidural, Lumbar/Sacral (Caudal), w/ imaging guidance - 49806 (Ordered for 12/08/2024) (Order pending approval) Notes: RECOMMEND THERAPEUTIC LUMBAR EPIDURAL STEROID INJECTION, levels L2-3 The patient reports overall 50% improvement in function and decrease in pain for greater than one month from previous diagnostic CAMILO. The patient also reports improvement in tolerance to activities which generally cause pain. Based on the results of previous diagnostic CAMILO, a therapeutic CAMILO is recommended. Expectation from a successful therapeutic epidural steroid injection is at least 50-70% relief of pain from baseline and evidence of improved function for at least six to eight weeks after delivery. The goal of epidural steroid injections is to reduce pain and inflammation, restoring rangeof motion and, thereby, facilitating progress in more active treatment programs, and avoiding surgery. The procedure and risks were discussed with the patient including but not limited to infection, bleeding, neurological complications, side effects from medications, no change in pain, worsening of pain, or even . We also discussed conservative options, surgical options, and medical management with patient as well. The patient indicates understanding and wishes to proceed with the recommendedtreatment approach. The patient was given written information about the procedure and all questionswere answered.??3.?Lumbar spondylosis?Procedure: Facet Inj. / MBB Lumbar/Sacral, 2 levels - 59847, 56382 (Ordered for 12/09/2024) (Order pending approval)* [facility] ?Procedure: Facet Inj. / MBB Lumbar/Sacral, 2 levels - 68369, 94139 (Ordered for 12/10/2024) (Order pending approval)* To be done in [place] Notes: RECOMMEND DIAGNOSTIC MEDIAL BRANCH BLOCK, levels L4-S1 The patient has an ongoing nonradicular pain component as described above, which we believe could be facet joint mediated. The pain has failed to respond to rest, activity modification NSAIDs therapy, physical therapy, and current prescription medications. Therefore, a diagnostic medial branch block is recommended. Diagnostic medial branch blocks are indicated to determine the source of pain because there is a discrepancy between pathology and complaints, and it is unclear whether patient's pain is central or peripheral in origin. The patient understands that 80% relief is received for a short time in order to be considered successful. If patient has two positive response diagnostic medial branch blocks, then rhizotomy will be considered. If the diagnostic medial branch blocks do not help at least 80%, then patient understands to not proceed with rhizotomy. Patient and provider understand and agree that, per [facility], medial branch blocks will be performed with a minimum interval of two weeks. The procedure and risks were discussed with the patient including but not limited to infection, bleeding, neurological complications, side effects from medications, no change in pain, worsening of pain, or even . We also discussed conservative options, surgical options, and medical management with patient as well. The patient indicates understanding and wishes to proceed with the recommendedtreatment approach. The patient was given written information about the procedure and all questionswere answered.??4.?Analgesic use?LAB: Urine Drug Screen (cup read) - 73824 (Collection Date & Time - 12/05/2024)?Negative * Procedure Codes: 8 0305 DRUG TEST PRSMV DIR OPT OBS IH * Follow Up: R charli: after procedure Billing Information: * Procedure Codes: 93317 DRUG TEST PRSMV DIR OPT OBS IH. Care Plan Details* * Electronic signature of Sabi León APRN on 12/07/2024 at 06:24 PM CDT Sign off status: Pending * Provider: TOYA Juárez Date: 1 Generated for Jillian rai/Ludwin/Melquiades on: 06:24 PM CDT
--- OUTSIDE RECORDS SUMMARY | 2024-12-05 06:57 | XMS_ITS ---
Author Organization [facility] Address [address] [place] [address] Care Team Providers Care Vision Impaired Teacher Name Role Phone Marilee León Unavailable [phone] Dalton Sonali Unavailable REASON FOR VISIT MJM ERx Medications Medication SIG (Take, Route, Frequency, Duration) Notes Start Date End Date Status traMADol HCl 50 MG Tablet 1 tablet as needed Orally every 4 hours; Duration: 30 days Fill on 12/05/2024 -closed weekends 12/05/2024 Active Gabapentin 300 MG Capsule 1 capsule as needed Orally daily; Duration: 30 days Fill 30 days from previous Rx 12/05/2024 Active Encounters Encounter Location Date Provider Diagnosis [facility] [address] [place] [place] [address] 12/05/2024 Sonali Hutson e Lumbar radiculopathy M54.16 Assessments Encounter Date Diagnosis (ICD Code) Assessment Notes Treatment Notes Treatment Clinical Notes Section Notes 12/05/2024 Lumbar radiculopathy (ICD-10 - M54.16) Plan Of Treatment Medication Medication Name Sig Start Date Stop Date Notes traMADol HCl 50 MG Tablet 1 tablet as needed Orally every 4 hours; Duration: 30 days 12/05/2024 Fill on 12/05/2024 -closed weekends Gabapentin 300 MG Capsule 1 capsule as needed Orally daily; Duration: 30 days 12/05/2024 Fill 30 days from previous Rx Progress Notes * Valerie GARCIA SDOB: [birth year] (39 yo M)Acc No.[id number]:12/05/2024 Patient: Star Valerie HOBSON :1985 A ge:39 Y S ex:Male Address:[address] [place] [address], [id number] * Refills Continue traMADol HCl Tablet, 50 MG, Orally, 180 Tablet, 1 tablet as needed, every 4 hours, 30 days, Refills=0 Continue Gabapentin Capsule, 300 MG, Orally, 30 Capsule, 1 capsule as needed, daily, 30 days, Refills=1 Subjective: * Chief Complaints: * Star SAMS ERx Assessment: * Assessment: 1. L umbar radiculopathy - M54.16 Plan: * Treatment: * true * Date: Generated for Jillian rai/Ludwin/Melquiades on: 06:24 PM CDT
[2024-12-07] VITALS (8 sets, daily range): BP systolic 161–191; BP diastolic 105–117; PULSE 71–77; RESP 16–18; TEMP 36.8; O2SAT 95–100; BMI 31.4
--- OUTSIDE RECORDS SUMMARY | 2024-12-07 18:24 | XMS_ITS | Clinical Summary ---
[facility] Organization [facility] Address [address] 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
--- OUTSIDE RECORDS SUMMARY | 2024-12-07 18:24 | XMS_ITS | Patient Health Record ---
[facility] Address [address] [address] Care Team Providers Care Printer Slotter Operator Name Role Phone Bridget Sahu Unavailable [phone] Allergies No Known Allergies Reason For Referral No Information Medications Medication SIG (Take, Route, Frequency, Duration) Notes Start Date End Date Status traMADol HCl 50 mg TAKE ONE TABLET BY M OUTH TWICE DAILY NEEDED FOR PAIN; Duration: 20 06/13/2023 Active hydrOXYzine HCl 25 MG 1 tablet at bedtim e as needed Orally; Duration: 30 days 07/28/2022 Active Lisinopril-hydroCHLOROthiaz taj 10-12.5 MG 1 tablet Orally Once a day; Duration: 90 days 11/10/2021 Active Social History Sex Assigned At : Social History Observation Description Sex Assigned At Male Household Question Answer Notes Marital status: Tobacco use other than smoking: Question Answer Notes Are you an other tobacco user? Yes n icotine pouches Problems Problem Type SNOMED Code ICD Code Onset Dates Problem Status W/U Status Risk Notes Problem Essential hypertension (08664469) Essential (primary) hypertension (I10) Active confirmed Plan Of Treatment No Information Insurance Providers Payer Name Payer Address Payer Phone Subscriber Number Group Number Insured Name Patient Relationship to Insured Coverage Start Date Coverage End Date [employer] [address] [place] [phone] [id number] Valerie Garcia Self - patient is the insured Medical (General) History Medical History History ICD Code hypertension
--- OUTSIDE RECORDS SUMMARY | 2024-12-07 18:24 | XMS_ITS | Encounter Summary ---
Author Organization [employer] [facility] Address [address] [place] [address] Care Team Providers Care International Sales Manager Name Role Phone Unavailable Primary Care Provider Unavailabl e Encounter Details Date Type Department Care Team (Latest Contact Info) Description 06/24/1997 Outpatient Historical [facility] Jose Angel Ball III, MD NO ADDRESS ON FILE Sprain of neck (Primary Dx) Social History Tobacco Use Types Packs/Day Years Used Date Smoking Tobacco: Never Assessed Sex and Gender Information Value Date Recorded Sex Assigned at Not on file 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
--- OUTSIDE RECORDS SUMMARY | 2024-12-07 18:24 | XMS_ITS | Encounter Summary ---
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
--- OUTSIDE RECORDS SUMMARY | 2024-12-07 18:24 | XMS_ITS | Encounter Summary ---
Author Organization [facility] Address [address] [place] [address] Care Team Providers Care Boots And Shoes Supervisor Name Role Phone Unavailable Primary Care Provider Unavailabl e Encounter Details Date Type Department Care Team (Late st Contact Info) Description 02/02/1997 Outpatient Historical [facility]-Carlos Espinal [place] [address] [place] [address] Social History Tobacco Use Types Packs/Day Years Used Date Smoking Tobacco: Never Assessed Sex and Gender Information Value Date Recorded Sex Assigned at Not on file 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
--- OUTSIDE RECORDS SUMMARY | 2024-12-07 18:25 | XMS_ITS | Encounter Summary ---
Author Organization [facility] Address [address] [place] [address] Care Team Providers Care Cork Insulation Installer Name Role Phone Unavailable Primary Care Provider Unavailabl e Encounter Details Date Type Department Care Team (Latest Contact Info) Description 02/02/1997 Outpatient [facility] [place] [address] [place] [address] Austin Sun MD NO ADDRESS ON FILE Other specific developmental learning difficulties (Primary Dx) Social History Tobacco Use Types Packs/Day Years Used Date Smoking Tobacco: Never Assessed Sex and Gender Information Value Date Recorded Sex Assigned at Not on file 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
--- OUTSIDE RECORDS SUMMARY | 2024-12-07 18:25 | XMS_ITS | Patient Health Record ---
Author Organization [facility] Address [address] [place] [address] Care Team Providers Care Telehealth Director Name Role Phone Marilee León Unavailable [phone] Debra Rivero Unavailable [phone] EdeErwin ramos Unavailable [phone] Sonali Hoffman Unavailable [phone] Allergies No Known Allergies Results Component Value Reference Range Flag Notes Urine Drug Screen (cup read) - 91010 Reviewed date:12/05/2024 11:23:25 AM Interpretation:Negative Performing Lab: Notes/Report: Negative Urine Drug Screen (cup read) - [id number] Reviewed date:08/06/2024 09:30:10 AM Interpretation:Negative Performing Lab: Notes/Report: Negative Urine Confirmation Panel (in strument) - [id number] Reviewed date:08/08/2024 02:45:23 PM Interpretation: Performing Lab: Notes/Report: 6-Acetylmorphine 0 <6 ng/mL N This araceli t was developed and its performance characteristics determined by [facility]. It has not been cleared or approved by the U.S. Food and Drug Administration. 7-Aminoclonazepam 0 <60 ng/mL N This te st was developed and its performance characteristics determined by [facility]. It has not been cleared or approved by the U.S. Food and Drug Administration. Alprazolam 0 <60 ng/mL N This test was developed and its performance characteristics determined by [facility]. It has not been cleared or approved by the U.S. Food and Drug Administration. Amphetamine 0 <75 ng/mL N This test was developed and its performance characteristics determined by [facility]. It has not been cleared or approved by the U.S. Food and Drug Administration. aOH-Alprazolam 0 <60 ng/mL N This test was developed and its performance characteristics determined by [facility]. It has not been cleared or approved by the U.S. Food and Drug Administration. Buprenorphine 0.0 <7.5 ng/mL N This test w as developed and its performance characteristics determined by [facility]. It has not been cleared or approved by the U.S. Food and Drug Administration. Norbuprenorphine 0.0 <37.5 ng/mL N This te st was developed and its performance characteristics determined by [facility]. It has not been cleared or approved by the U.S. Food and Drug Administration. Carisoprodol 0 <75 ng/mL N This test wa s developed and its performance characteristics determined by [facility]. It has not been cleared or approved by the U.S. Food and Drug Administration. Codeine 0 <75 ng/mL N This test was developed and its performance characteristics determined by [facility]. It has not been cleared or approved by the U.S. Food and Drug Administration. EDDP 0 <75 ng/mL N This test was developed and its performance characteristics determined by [facility]. It has not been cleared or approved by the U.S. Food and Drug Administration. Fentanyl 0 <6 ng/mL N This test was developed and its performance characteristics determined by [facility]. It has not been cleared or approved by the U.S. Food and Drug Administration. Hydrocodone 224 <75 ng/mL H This test was developed and its performance characteristics determined by [facility]. It has not been cleared or approved by the U.S. Food and Drug Administration. Hydromorphone 86 <75 ng/mL H This test w as developed and its performance characteristics determined by [facility]. It has not been cleared or approved by the U.S. Food and Drug Administration. Lorazepam 0 <60 ng/mL N This test was developed and its performance characteristics determined by [facility]. It has not been cleared or approved by the U.S. Food and Drug Administration. MDMA 0 <75 ng/mL N This test was developed and its performance characteristics determined by [facility]. It has not been cleared or approved by the U.S. Food and Drug Administration. Meperidine 0.0 <37.5 ng/mL N This test was developed and its performance characteristics determined by [facility]. It has not been cleared or approved by the U.S. Food and Drug Administration. Meprobamate 0 <75 ng/mL N This test was developed and its performance characteristics determined by [facility]. It has not been cleared or approved by the U.S. Food and Drug Administration. Methamphetamine 37 <75 ng/mL N This test was developed and its performance characteristics determined by [facility]. It has not been cleared or approved by the U.S. Food and Drug Administration. Methadone 0 <75 ng/mL N This test was developed and its performance characteristics determined by [facility]. It has not been cleared or approved by the U.S. Food and Drug Administration. Morphine 0 <75 ng/mL N This test was developed and its performance characteristics determined by [facility]. It has not been cleared or approved by the U.S. Food and Drug Administration. Nordiazepam 0 <60 ng/mL N This test was developed and its performance characteristics determined by [facility]. It has not been cleared or approved by the U.S. Food and Drug Administration. Norfentanyl 0 <6 ng/mL N This test was developed and its performance characteristics determined by [facility]. It has not been cleared or approved by the U.S. Food and Drug Administration. Normeperidine 0.0 <37.5 ng/mL N This test was developed and its performance characteristics determined by [facility]. It has not been cleared or approved by the U.S. Food and Drug Administration. O-desmethyltramadol 0 <75 ng/mL N This test was developed and its performance characteristics determined by [facility]. It has not been cleared or approved by the U.S. Food and Drug Administration. Oxazepam 0 <60 ng/mL N This test was developed and its performance characteristics determined by [facility]. It has not been cleared or approved by the U.S. Food and Drug Administration. Oxycodone 0.0 <37.5 ng/mL N This test was developed and its performance characteristics determined by [facility]. It has not been cleared or approved by the U.S. Food and Drug Administration. Oxymorphone 0 <75 ng/mL N This test was developed and its performance characteristics determined by [facility]. It has not been cleared or approved by the U.S. Food and Drug Administration. Phencyclidine 0.0 <7.5 ng/mL N This test w as developed and its performance characteristics determined by [facility]. It has not been cleared or approved by the U.S. Food and Drug Administration. Tapentadol 0.0 <37.5 ng/mL N This test was developed and its performance characteristics determined by [facility]. It has not been cleared or approved by the U.S. Food and Drug Administration. Temazepam 0 <60 ng/mL N This test was developed and its performance characteristics determined by [facility]. It has not been cleared or approved by the U.S. Food and Drug Administration. Tramadol 36 <75 ng/mL N This test was developed and its performance characteristics determined by [facility]. It has not been cleared or approved by the U.S. Food and Drug Administration. Norhydrocodone 271 <75 ng/mL H This test was developed and its performance characteristics determined by [facility]. It has not been cleared or approved by the U.S. Food and Drug Administration. Noroxycodone 0 <38 ng/mL N This test wa s developed and its performance characteristics determined by [facility]. It has not been cleared or approved by the U.S. Food and Drug Administration. Pregabalin 0 <225 ng/mL N This test was developed and its performance characteristics determined by [facility]. It has not been cleared or approved by the U.S. Food and Drug Administration. Gabapentin 0 <225 ng/mL N This test was developed and its performance characteristics determined by [facility]. It has not been cleared or approved by the U.S. Food and Drug Administration. Benzoylecgonine 0.0 <37.5 ng/mL N This araceli t was developed and its performance characteristics determined by [facility]. It has not been cleared or approved by the U.S. Food and Drug Administration. 4-Hydroxy Xylazine 0 <25 ng/mL N This t est was developed and its performance characteristics determined by [facility]. It has not been cleared or approved by the U.S. Food and Drug Administration. Urine Drug Screen (cup read) - [id number] Reviewed date:09/05/2024 09:34:26 AM Interpretation: Performing Lab: Notes/Report: OPI + Urine Confirmation Panel (in strument) - [id number] Reviewed date:09/10/2024 05:12:13 PM Interpretation: Performing Lab: Notes/Report: 6-Acetylmorphine 0 <6 ng/mL N This araceli t was developed and its performance characteristics determined by [facility]. It has not been cleared or approved by the U.S. Food and Drug Administration. 7-Aminoclonazepam 0 <60 ng/mL N This te st was developed and its performance characteristics determined by [facility]. It has not been cleared or approved by the U.S. Food and Drug Administration. Alprazolam 0 <60 ng/mL N This test was developed and its performance characteristics determined by [facility]. It has not been cleared or approved by the U.S. Food and Drug Administration. Amphetamine 0 <75 ng/mL N This test was developed and its performance characteristics determined by [facility]. It has not been cleared or approved by the U.S. Food and Drug Administration. aOH-Alprazolam 0 <60 ng/mL N This test was developed and its performance characteristics determined by [facility]. It has not been cleared or approved by the U.S. Food and Drug Administration. Buprenorphine 0.1 <7.5 ng/mL N This test w as developed and its performance characteristics determined by [facility]. It has not been cleared or approved by the U.S. Food and Drug Administration. Norbuprenorphine 0.0 <37.5 ng/mL N This te st was developed and its performance characteristics determined by [facility]. It has not been cleared or approved by the U.S. Food and Drug Administration. Carisoprodol 0 <75 ng/mL N This test wa s developed and its performance characteristics determined by [facility]. It has not been cleared or approved by the U.S. Food and Drug Administration. Codeine 0 <75 ng/mL N This test was developed and its performance characteristics determined by [facility]. It has not been cleared or approved by the U.S. Food and Drug Administration. EDDP 0 <75 ng/mL N This test was developed and its performance characteristics determined by [facility]. It has not been cleared or approved by the U.S. Food and Drug Administration. Fentanyl 0 <6 ng/mL N This test was developed and its performance characteristics determined by [facility]. It has not been cleared or approved by the U.S. Food and Drug Administration. Hydrocodone 214 <75 ng/mL H This test was developed and its performance characteristics determined by [facility]. It has not been cleared or approved by the U.S. Food and Drug Administration. Hydromorphone 48 <75 ng/mL N This test w as developed and its performance characteristics determined by [facility]. It has not been cleared or approved by the U.S. Food and Drug Administration. Lorazepam 0 <60 ng/mL N This test was developed and its performance characteristics determined by [facility]. It has not been cleared or approved by the U.S. Food and Drug Administration. MDMA 0 <75 ng/mL N This test was developed and its performance characteristics determined by [facility]. It has not been cleared or approved by the U.S. Food and Drug Administration. Meperidine 0.0 <37.5 ng/mL N This test was developed and its performance characteristics determined by [facility]. It has not been cleared or approved by the U.S. Food and Drug Administration. Meprobamate 0 <75 ng/mL N This test was developed and its performance characteristics determined by [facility]. It has not been cleared or approved by the U.S. Food and Drug Administration. Methamphetamine 0 <75 ng/mL N This test was developed and its performance characteristics determined by [facility]. It has not been cleared or approved by the U.S. Food and Drug Administration. Methadone 0 <75 ng/mL N This test was developed and its performance characteristics determined by [facility]. It has not been cleared or approved by the U.S. Food and Drug Administration. Morphine 0 <75 ng/mL N This test was developed and its performance characteristics determined by [facility]. It has not been cleared or approved by the U.S. Food and Drug Administration. Nordiazepam 0 <60 ng/mL N This test was developed and its performance characteristics determined by [facility]. It has not been cleared or approved by the U.S. Food and Drug Administration. Norfentanyl 0 <6 ng/mL N This test was developed and its performance characteristics determined by [facility]. It has not been cleared or approved by the U.S. Food and Drug Administration. Normeperidine 0.0 <37.5 ng/mL N This test was developed and its performance characteristics determined by [facility]. It has not been cleared or approved by the U.S. Food and Drug Administration. O-desmethyltramadol 1116 <75 ng/mL H This test was developed and its performance characteristics determined by [facility]. It has not been cleared or approved by the U.S. Food and Drug Administration. Oxazepam 0 <60 ng/mL N This test was developed and its performance characteristics determined by [facility]. It has not been cleared or approved by the U.S. Food and Drug Administration. Oxycodone 6.9 <37.5 ng/mL N This test was developed and its performance characteristics determined by [facility]. It has not been cleared or approved by the U.S. Food and Drug Administration. Oxymorphone 0 <75 ng/mL N This test was developed and its performance characteristics determined by [facility]. It has not been cleared or approved by the U.S. Food and Drug Administration. Phencyclidine 0.0 <7.5 ng/mL N This test w as developed and its performance characteristics determined by [facility]. It has not been cleared or approved by the U.S. Food and Drug Administration. Tapentadol 0.0 <37.5 ng/mL N This test was developed and its performance characteristics determined by [facility]. It has not been cleared or approved by the U.S. Food and Drug Administration. Temazepam 0 <60 ng/mL N This test was developed and its performance characteristics determined by [facility]. It has not been cleared or approved by the U.S. Food and Drug Administration. Tramadol 680 <75 ng/mL H This test was developed and its performance characteristics determined by [facility]. It has not been cleared or approved by the U.S. Food and Drug Administration. Norhydrocodone 257 <75 ng/mL H This test was developed and its performance characteristics determined by [facility]. It has not been cleared or approved by the U.S. Food and Drug Administration. Noroxycodone 0 <38 ng/mL N This test wa s developed and its performance characteristics determined by [facility]. It has not been cleared or approved by the U.S. Food and Drug Administration. Pregabalin 0 <225 ng/mL N This test was developed and its performance characteristics determined by [facility]. It has not been cleared or approved by the U.S. Food and Drug Administration. Gabapentin >88769 <225 ng/mL > This test was developed and its performance characteristics determined by [facility]. It has not been cleared or approved by the U.S. Food and Drug Administration. Benzoylecgonine 0.0 <37.5 ng/mL N This araceli t was developed and its performance characteristics determined by [facility]. It has not been cleared or approved by the U.S. Food and Drug Administration. 4-Hydroxy Xylazine 0 <25 ng/mL N This t est was developed and its performance characteristics determined by [facility]. It has not been cleared or approved by the U.S. Food and Drug Administration. Urine Drug Screen (cup read) - [id number] Reviewed date:10/07/2024 10:40:07 AM Interpretation: Performing Lab: Notes/Report: AMP Neg ANTOINE Neg BUP Neg BZO Neg MDMA Neg OPI Neg PCP Neg OXY Neg MTD Neg MAMP Neg Urine Confirmation Panel (in strument) - [id number] Reviewed date:10/09/2024 11:12:12 AM Interpretation: Performing Lab: Notes/Report: 6-Acetylmorphine 0 <6 ng/mL N This araceli t was developed and its performance characteristics determined by [facility]. It has not been cleared or approved by the U.S. Food and Drug Administration. 7-Aminoclonazepam 0 <60 ng/mL N This te st was developed and its performance characteristics determined by [facility]. It has not been cleared or approved by the U.S. Food and Drug Administration. Alprazolam 0 <60 ng/mL N This test was developed and its performance characteristics determined by [facility]. It has not been cleared or approved by the U.S. Food and Drug Administration. Amphetamine 0 <75 ng/mL N This test was developed and its performance characteristics determined by [facility]. It has not been cleared or approved by the U.S. Food and Drug Administration. aOH-Alprazolam 0 <60 ng/mL N This test was developed and its performance characteristics determined by [facility]. It has not been cleared or approved by the U.S. Food and Drug Administration. Buprenorphine 0.0 <7.5 ng/mL N This test w as developed and its performance characteristics determined by [facility]. It has not been cleared or approved by the U.S. Food and Drug Administration. Norbuprenorphine 0.0 <37.5 ng/mL N This te st was developed and its performance characteristics determined by [facility]. It has not been cleared or approved by the U.S. Food and Drug Administration. Carisoprodol 0 <75 ng/mL N This test wa s developed and its performance characteristics determined by [facility]. It has not been cleared or approved by the U.S. Food and Drug Administration. Codeine 0 <75 ng/mL N This test was developed and its performance characteristics determined by [facility]. It has not been cleared or approved by the U.S. Food and Drug Administration. EDDP 0 <75 ng/mL N This test was developed and its performance characteristics determined by [facility]. It has not been cleared or approved by the U.S. Food and Drug Administration. Fentanyl 0 <6 ng/mL N This test was developed and its performance characteristics determined by [facility]. It has not been cleared or approved by the U.S. Food and Drug Administration. Hydrocodone 38 <75 ng/mL N This test was developed and its performance characteristics determined by [facility]. It has not been cleared or approved by the U.S. Food and Drug Administration. Hydromorphone 26 <75 ng/mL N This test w as developed and its performance characteristics determined by [facility]. It has not been cleared or approved by the U.S. Food and Drug Administration. Lorazepam 0 <60 ng/mL N This test was developed and its performance characteristics determined by [facility]. It has not been cleared or approved by the U.S. Food and Drug Administration. MDMA 0 <75 ng/mL N This test was developed and its performance characteristics determined by [facility]. It has not been cleared or approved by the U.S. Food and Drug Administration. Meperidine 0.0 <37.5 ng/mL N This test was developed and its performance characteristics determined by [facility]. It has not been cleared or approved by the U.S. Food and Drug Administration. Meprobamate 0 <75 ng/mL N This test was developed and its performance characteristics determined by [facility]. It has not been cleared or approved by the U.S. Food and Drug Administration. Methamphetamine 0 <75 ng/mL N This test was developed and its performance characteristics determined by [facility]. It has not been cleared or approved by the U.S. Food and Drug Administration. Methadone 0 <75 ng/mL N This test was developed and its performance characteristics determined by [facility]. It has not been cleared or approved by the U.S. Food and Drug Administration. Morphine 0 <75 ng/mL N This test was developed and its performance characteristics determined by [facility]. It has not been cleared or approved by the U.S. Food and Drug Administration. Nordiazepam 0 <60 ng/mL N This test was developed and its performance characteristics determined by [facility]. It has not been cleared or approved by the U.S. Food and Drug Administration. Norfentanyl 0 <6 ng/mL N This test was developed and its performance characteristics determined by [facility]. It has not been cleared or approved by the U.S. Food and Drug Administration. Normeperidine 0.0 <37.5 ng/mL N This test was developed and its performance characteristics determined by [facility]. It has not been cleared or approved by the U.S. Food and Drug Administration. O-desmethyltramadol 0 <75 ng/mL N This test was developed and its performance characteristics determined by [facility]. It has not been cleared or approved by the U.S. Food and Drug Administration. Oxazepam 0 <60 ng/mL N This test was developed and its performance characteristics determined by [facility]. It has not been cleared or approved by the U.S. Food and Drug Administration. Oxycodone 0.0 <37.5 ng/mL N This test was developed and its performance characteristics determined by [facility]. It has not been cleared or approved by the U.S. Food and Drug Administration. Oxymorphone 0 <75 ng/mL N This test was developed and its performance characteristics determined by [facility]. It has not been cleared or approved by the U.S. Food and Drug Administration. Phencyclidine 0.0 <7.5 ng/mL N This test w as developed and its performance characteristics determined by [facility]. It has not been cleared or approved by the U.S. Food and Drug Administration. Tapentadol 0.0 <37.5 ng/mL N This test was developed and its performance characteristics determined by [facility]. It has not been cleared or approved by the U.S. Food and Drug Administration. Temazepam 0 <60 ng/mL N This test was developed and its performance characteristics determined by [facility]. It has not been cleared or approved by the U.S. Food and Drug Administration. Tramadol 0 <75 ng/mL N This test was developed and its performance characteristics determined by [facility]. It has not been cleared or approved by the U.S. Food and Drug Administration. Norhydrocodone 86 <75 ng/mL H This test was developed and its performance characteristics determined by [facility]. It has not been cleared or approved by the U.S. Food and Drug Administration. Noroxycodone 0 <38 ng/mL N This test wa s developed and its performance characteristics determined by [facility]. It has not been cleared or approved by the U.S. Food and Drug Administration. Pregabalin 0 <225 ng/mL N This test was developed and its performance characteristics determined by [facility]. It has not been cleared or approved by the U.S. Food and Drug Administration. Gabapentin >18497 <225 ng/mL > This test was developed and its performance characteristics determined by [facility]. It has not been cleared or approved by the U.S. Food and Drug Administration. Benzoylecgonine 0.0 <37.5 ng/mL N This araceli t was developed and its performance characteristics determined by [facility]. It has not been cleared or approved by the U.S. Food and Drug Administration. 4-Hydroxy Xylazine 0 <25 ng/mL N This t est was developed and its performance characteristics determined by [facility]. It has not been cleared or approved by the U.S. Food and Drug Administration. Tox Results Reviewed date:08/11/2024 10:31:49 AM Interpretation: Performing Lab: Notes/Report: Tox Results Reviewed date:09/12/2024 09:25:51 AM Interpretation: Performing Lab: Notes/Report: Tox Results Reviewed date:10/09/2024 11:16:06 AM Interpretation: Performing Lab: Notes/Report: Reason For Referral Reason Eval and treat Diagnosis 1 Chronic pain syndrom e (G89.4) Referring Provider First Name SHAYAN Referring Provider Last Name IRVING Referring Provider Speciality Mental butcher dicap psychiatry service [facility] Referred Provider Erwin Owen Referred Address [address] [place] [address],[facility],[address], Referred Provider Specialty Pain Medicin e General Notes Landy Cosme 05/28 04:28:49 PM >mailed NPPW Referral Priority Routine Medications Medication SIG (Take, Route, Frequency, Duration) Notes Start Date End Date Status traMADol HCl 50 MG Tablet 1 tablet Orally Every 4 hrs; Duration: 30 days As needed Do not exceed 5 tabs per day Fill on 10/06/2024 10/07/2024 Active traMADol HCl 50 MG Tablet 1 tablet as needed Orally every 4 hours; Duration: 30 days Fill on 12/05/2024 -closed weekends 12/05/2024 Active Gabapentin 300 MG Capsule 1 capsule as needed Orally daily; Duration: 30 days Fill 30 days from previous Rx 12/05/2024 Active Lisinopril 10 MG Tablet 1 tablet Orally Once a day Active Social History Social History Additional Details Category Social Info Options Details Miscellaneous: Current 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 De nies Do you drink alcohol? Socially Problems Problem Type SNOMED Code ICD Code Onset Dates Problem Status W/U Status Risk Notes Problem Chronic pain syndrome (339710543) Chronic pain syndrome (G89.4) Active confirmed Problem Lumbar radiculopathy (800819106) Lumbar radiculopathy (M54.16) Active confirmed Problem Lumbar spondylosis (680188111) Lumbar spondylosis (M47.816) Active confirmed Problem Difficulty sleeping (278022688) Difficulty sleeping (G47.9) Active confirmed Problem Lumbar pain (550411012) Lumbar pain (M54.50) Active confirmed Problem Long-term current use of drug therapy (930240728) Analgesic use (Z79.899) Active confirmed Vital Signs Height-cm 185.42 cm 12/05/2024 Weight-kg 107.96 kg 12/05/2024 Height 73 in 12/05/2024 Weight 238 lbs 12/05/2024 BMI 31.4 kg/m2 12/05/2024 Procedures Procedure Date Ordered Date Performed Result Body Sit e Epidural, Lumbar/Sacral (Cau nikia), w/ imaging guidance - 74757 10/29/2024 10/29/202410-29 Encounters Encounter Location Date Provider Diagnosis [facility] [address] [address] 12/05/2024 Marilee León Chronic pain syndrome G89.4 ; Lumbar radiculopathy M54.16 ; Lumbar spondylosis M47.816 and Analgesic use Z79.899 [facility] [address] [facility] [place] [address] 08/06/2024 Erwin Owen Chronic pain syndrome G89.4 ; Difficulty sleeping G47.9 ; Lumbar pain M54.50 ; Lumbar radiculopathy M54.16 ; Lumbar spondylosis M47.816 and Analgesic use Z79.899 [facility] [address] [facility] [place] [address] 09/05/2024 Marilee León Chronic pain syndrome G89.4 ; Lumbar radiculopathy M54.16 ; Lumbar spondylosis M47.816 and Analgesic use Z79.899 [facility] [address] [facility] [place] [address] 10/07/2024 Marilee León Chronic pain syndrome G89.4 ; Lumbar radiculopathy M54.16 ; Lumbar spondylosis M47.816 and Analgesic use Z79.899 [facility] [address] [place] [address] 10/29/2024 Erwin Brayden Lumbar radiculopathy M54.16 [facility] [address] [facility] [place] [address] 09/05/2024 Debra Rivero Chronic pain syndrome G89.4 [facility] [address] [facility] [place] [address] 09/22/2024 Debra Rivero [facility] [address] [facility] [place] [address] 10/07/2024 Erwin Owen Chronic pain syndrome G89.4 and Lumbar radiculopathy M54.16 [facility] [address] [facility] [place] [address] 12/05/2024 Sonali grant Lumbar radiculopathy M54.16 Assessments Encounter Date Diagnosis (ICD Code) Assessment Notes Treatment Notes Treatment Clinical Notes Section Notes 10/29/2024 Lumbar radiculopathy (ICD-10 - M54.16) 12/05/2024 Lumbar radiculopathy (ICD-10 - M54.16) 12/05/2024 Chronic pain syndrome (ICD-10 - G89.4) [...] effects are noted. Last UDS and [employer] reviewed today. Patient is advised that best [...] this policy. 12/05/2024 HEP Logs were given 10/07/2024 Chronic pain syndrome (ICD-10 - G89.4) I did nice discussion with the patient today regarding his chronic pain complaints. He is awaiting his LESI. We are having trouble getting his insurance to respond to the PA. The patient states he wants to pay donahue pay. We are going to have someone call him regarding this. He is doing reasonably well on his current medication regimen and is hoping after the LESI that he will be able to come down and off the tramadol. I did discuss lifestyle modifications as well as a bowel regimen. He denies any other changes since we last seen him or any untoward side effects of the medication. He will return to clinic in 2 months/after procedure to monitor for treatment effectiveness and [...] effects are noted. Last UDS and [employer] reviewed today. Patient is advised that best long-term goals include increased activity, core strengthening, proper weight management, coping strategies, avoidance of painful triggers, and targeted interventional therapy. We will see the patient for routine follow up in accordance with all clinic policies. We did remind patient today of current guidelines to decrease opioid when possible. We will continue to stress nonopioid treatment. RECOMMEND URINE TESTING TODAY Urine drug screening will be performed today to monitor compliance with opioid therapy or to serve as a baseline screen for a patient who may be a candidate for opioid therapy in the future, pending UDS results. We will monitor with in-office testing (rapid testing) today and review the results prior to dispensing prescription. All positive results will be sent for quantitative analysis to ensure accuracy and quantify amounts. Any expected positive results that return negative will also be sent for quantitative analysis. Any questionable read or any medication we cannot test for in the office confidently will be sent for quantitative analysis, as well. Patient has been made aware of this policy and agrees to abide by our urine testing policy. 10/07/2024 Sent actions to Heather and Cesario to check on the LESI's PA and Don[place]ue poe 09/05/2024 Chronic pain syndrome (ICD-10 - G89.4) 08/06/2024 Chronic pain syndrome (ICD-10 - G89.4) Pleasant patient presents today with back pain that radiates into his lower extremities. 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 At night, he notes that he has difficulty sleeping and often cannot fall asleep till 2 or 3 AM due to the legs and back bothering him. We discussed his MRI. We also discussed procedural options and some medication changes that may work better for him. Currently, he's using Tramadol with some benefit, but he's still having difficulty with sleep. Refill Tramadol 50 mg Q4 PRN not to exceed five a day #150 Trial Gabapentin 300 mg QHS Schedule LESI L5/S1 Follow up in 4-6 weeks RECOMMEND THERAPEUTIC LUMBAR EPIDURAL STEROID INJECTION, levels The patient reports overall 50% improvement in [...] the procedure and all questions were answered. 10/07/2024 Chronic pain syndrome (ICD-10 - G89.4) 08/06/2024 Difficulty sleeping (ICD-10 - G47.9) 09/05/2024 Chronic pain syndrome (ICD-10 - G89.4) I had a long discussion with the patient and his today regarding his chronic pain complaints. A total of 40 minutes was spent with the patient today. He was a little confused as he was expecting to have his LESI today. Looks like we have not gotten approval from his insurance yet so we will check on this for him today. He is also wanting to know how much the procedure would cost to pay donahue. I did go over the patient's MRI with him again today using the spine model. They had a lot of questions about what is going on and things we can do to help and if these were things would ever go away. I did spend a great deal of time of discussing details of what we can do to help and answering any questions. It does appear he may be a candidate for medial branch blocks and rhizotomies due to his facet arthropathy but we will wait and see how he does with the LESI first. I did discuss lifestyle modifications as well as a bowel regimen. He denies any changes in his health since we last seen him or any untoward side effects of medication. He will continue his medication at present level and return to clinic in 2 months to monitor for treatment effectiveness and compliance. [...] effects are noted. Last UDS and [employer] reviewed today. Patient is advised that best long-term goals include increased activity, core strengthening, proper weight management, coping strategies, avoidance of painful triggers, and targeted interventional therapy. We will see the patient for routine follow up in accordance with all clinic policies. We did remind patient today of current guidelines to decrease opioid when possible. We will continue to stress nonopioid treatment. RECOMMEND URINE TESTING TODAY Urine drug screening will be performed today to monitor compliance with opioid therapy or to serve as a baseline screen for a patient who may be a candidate for opioid therapy in the future, pending UDS results. We will monitor with in-office testing (rapid testing) today and review the results prior to dispensing prescription. All positive results will be sent for quantitative analysis to ensure accuracy and quantify amounts. Any expected positive results that return negative will also be sent for quantitative analysis. Any questionable read or any medication we cannot test for in the office confidently will be sent for quantitative analysis, as well. Patient has been made aware of this policy and agrees to abide by our urine testing policy. 09/05/2024 Lumbar radiculopathy (ICD-10 - M54.16) 09/05/2024 Lumbar spondylosis (ICD-10 - M47.816) 08/06/2024 Lumbar pain (ICD-10 - M54.50) 10/07/2024 Lumbar radiculopathy (ICD-10 - M54.16) 12/05/2024 Lumbar radiculopathy (ICD-10 - M54.16) RECOMMEND [...] and provider understand and agree that, per [facility] LCD, medial branch blocks will be performed [...] the procedure and all questions were answered. 10/07/2024 Lumbar spondylosis (ICD-10 - M47.816) 10/07/2024 Lumbar radiculopathy (ICD-10 - M54.16) 08/06/2024 Lumbar radiculopathy (ICD-10 - M54.16) 09/05/2024 Analgesic use (ICD-10 - Z79.899) 08/06/2024 Lumbar spondylosis (ICD-10 - M47.816) 10/07/2024 Analgesic use (ICD-10 - Z79.899) 12/05/2024 Analgesic use (ICD-10 - Z79.899) 08/06/2024 Analgesic use (ICD-10 - Z79.899) 08/06/2024 Other I, Kathy Michelle, am scribing for Dr. Owen. I, Dr. Owen, personally performed the services described in this documentation, as scribed by Kathy Michelle, and it is both accurate and complete. Plan Of Treatment Future Test Test Name Order Date Epidural, Lumbar/Sacral (Caudal), w/ onofre ging guidance - [id number] 12/08/2024 Facet Inj. / MBB Lumbar/Sacral, 2 levels - 47762, 72152 12/09/2024 Facet Inj. / MBB Lumbar/Sacral, 2 levels - 63672, 27824 12/10/2024 Insurance Providers Payer Name Payer Address Payer Phone Subscriber Number Group Number Insured Name Patient Relationship to Insured Coverage Start Date Coverage End Date [facility] P[facility] [address] [place] [address] [id number] Valerie Garcia Self - patient is the insured 4 Medical (General) History Medical History History ICD Code kidney stones
[2024-12-07 18:41] LABS: Hematocrit 43.2 % (37-53); Hemoglobin 14.90 g/dL (11.27-16.99); Mean Corpuscular HGB Conc 34.5 g/dL (30-55); Mean Corpuscular Hemoglobin 28.9 pg (27-33); Mean Corpuscular Volume 83.9 fl (82-101); Nucleated Red Blood Cells % 0 %; Platelet Count 355 10^3/cmm (157-399); Red Blood Count 5.15 10^6/uL (3.85-5.65); White Blood Count 14.36 10^3/uL (3.29-11.43)
--- NOTE | 2024-12-07 18:44 | CTR_ITS ---
PROCEDURE INFORMATION: Exam: CT Abdomen And Pelvis Without Contrast Exam date and time: 12/07/2024 7:31 PM Age: 39 years old Clinical indication: Abdominal pain; C/O left flank pain; Additional info: Left abd pain TECHNIQUE: Imaging protocol: Computed tomography of the abdomen and pelvis without contrast. Radiation optimization: All CT scans at this facility use at least one of these dose optimization techniques: automated exposure control; mA and/or kV adjustment per patient size (includes targeted exams where dose is matched to clinical indication); or iterative reconstruction.The liver is diffusely low in attenuation consistent with hepatic steatosis. Other technique: There are 2 obstructing 4 mm stones in the proximal left ureter with upstream hydroureter and mild hydronephrosis and perirenal nephric fat stranding. COMPARISON: CT kidney stone [id number] 10/01/2019 8:37 PM RADIATION DOSE METRICS: Total DLP (mGy-cm): 992.13 FINDINGS: Liver: Normal. No mass. Gallbladder and biliary ducts: Normal. No calcified stones. No ductal dilation. Pancreas: Normal. No ductal dilation. Spleen: Normal. No splenomegaly. Adrenal glands: Normal. No mass. Kidneys and ureters: There are 2 obstructing stones in the proximal left ureter measuring up to 4 mm with upstream hydroureter, mild hydronephrosis and perinephric fat stranding. Stomach and bowel: Unremarkable. No obstruction. No mucosal thickening. Appendix: No evidence of appendicitis. Intraperitoneal space: Unremarkable. No free air. No significant fluid collection. Vasculature: Unremarkable. No abdominal aortic aneurysm. Lymph nodes: Unremarkable. No enlarged lymph nodes. Urinary bladder: Unremarkable as visualized. Reproductive: Unremarkable as visualized. Bones/joints: Unremarkable. No acute fracture. Soft tissues: Unremarkable. CT/CT kidney stone [id number] IMPRESSION: 1. There are 2 obstructing 4 mm stones in the proximal left ureter with upstream hydroureter and mild hydronephrosis and perirenal nephric fat stranding. 2. There are 2 obstructing stones in the proximal left ureter measuring up to 4 mm with upstream hydroureter, mild hydronephrosis and perinephric fat stranding.
[2024-12-07 18:58] LABS: Alanine Aminotransferase 39 U/L (0-41); Albumin Level 4.6 g/dL (3.5-5.2); Alkaline Phosphatase 93 U/L (40-130); Aspartate Amino Transferase 24 U/L (0-40); Blood Urea Nitrogen 17 mg/dL (6-20); Calcium 9.3 mg/dL (8.5-10.5); Carbon Dioxide 22 mmol/L (22-29); Chloride 98 mmol/L (98-107); Creatinine Clr Calc Pharmacy 115.0530; Globulin 3.3 g/dL (1.3-4.6); Glucose 105 mg/dL (65-115); Lipase 21 U/L (13-60); Osmolality Calculated 284 mOsm/kg (285-295); Sodium 136 mmol/L (136-145); Total Protein 7.9 g/dL (6.6-8.7)
[2024-12-07 19:00] LABS: Anion Gap 20.0 (5-19); Potassium 4.0 mmol/L (3.5-5.1)
--- NOTE | 2024-12-07 19:01 | ED_ITS ---
HPI - Male Genitourinary 2 General: Chief complaint: Urogenital-Male Stated complaint: Possible Kidney stone Time Seen by Provider: 12/07/24 18:28 Source: patient Mode of arrival: ambulatory Limitations: no limitations History of Present Illness: Patient is a 39-year-old male presenting Emergency Department complaining of left flank and abdomen pain beginning around noon. States he has a history of kidney stones in the past month which have all passed spontaneously, he has never required procedural removal or breaking up of the stones. Has never seen urology. Denies any urinary symptoms such as dysuria or blood in his urine. Is noting nausea at this time states he feels like he could vomit but he has not. He took tramadol for pain which did not help. No fevers or chills. Mildly hypertensive at this time likely secondary to pain, otherwise afebrile and not tachycardic. Nontoxic-appearing. MD Complaint: other (Left flank and abdominal pain) Onset (ago): hour(s) Duration: constant and progressively worsening Severity: similar to previous episodes Associated symptoms: Reports nausea and vomiting; Deny dysuria or hematuria Related Data Home Medications ?Medication ?Instructions ?Recorded ?Confirmed lisinopril 10 tab PO 06/28/23 06/28/23 mg-hydrochlorothiazide 12.5 mg tablet Previous Rx's ?Medication ?Instructions ?Recorded ketorolac 10 mg tablet 10 mg PO Q8H pain 5 days #15 tabs 06/28/23 prednisone 20 mg tablet 60 mg (3 x 20 mg) PO DAILY 5 days 06/28/23 #15 tabs hydrocodone 7.5 mg-acetaminophen 1 tab PO Q8H PRN pain #15 tabs 12/07/24 325 mg tablet ondansetron HCl 4 mg tablet 4 mg PO Q8H #30 tabs 12/07 tamsulosin 0.4 mg capsule 0.4 mg PO DAILY #7 caps 11/19 11/13 Allergies Allergy/AdvReac Type Severity Reaction Status Date / Time No Known Allergies Allergy Verified 06/28/23 14:55 Review of Systems 2 General: Reports: 10 or more systems reviewed and unremarkable except in HPI and below Const: Denies: fever(s), chills, change in appetite, change in weight or diaphoresis ENMT: Denies: throat pain or hoarseness Card: Denies: chest pain, palpitations or lightheadedness Resp: Denies: dyspnea, productive cough or wheezing GI: Reports: abdominal pain, nausea and vomiting; Denies: diarrhea, constipation, bloating, change in stool character or hematochezia : Reports: flank pain; Denies: difficulty urinating, dysuria, urinary frequency, urinary urgency or hematuria Musc: Denies: neck pain or back pain Skin/Breast: Denies: rash or new lesions Neuro: Denies: headache(s) or dizziness Physical Exam 2 Narrative: EXAM NARRATIVE: Const: COMMON NORMALS: no acute distress, patient oriented x3, no limitations, alert and well nourished GENERAL APPEARANCE: cooperative O RIENTATION/CONSCIOUSNESS: Yes awake OTHER: Nontoxic-appearing Neck/C-Spine: COMMON NORMALS: full ROM, supple and no meningeal signs Resp: COMMON NORMALS: normal respiratory effort, No retractions, No use of accessory muscles and clear to auscultation bilaterally AUSCULTATION: clear to auscultation bilaterally, no crackles, no rales, no rhonchi and no wheezes Cardio: COMMON NORMALS: regular rate, regular rhythm, No gallops present (Cardio), No clicks present (Cardio), No murmurs present (Cardio), No rub (Cardio) and Peripheral pulses 2+ throughout RATE: regular rate RHYTHM: r egular rhythm PERIPHERAL PULSES: Peripheral pulses 2+ throughout GI: COMMON NORMALS: Normal to inspection, nondistended, normoactive bowel sounds present, Soft to palpation, No hepatosplenomegaly present and no masses AUSCULTATION: Yes normoactive bowel sounds PALPATION: Yes Soft to palpation, Yes Tenderness to palpation present (GI) Details: LLQ, No Rigid due to palpation and Yes No hepatosplenomegaly present RECTAL EXAM: Yes deferred : COMMON NORMALS: Yes no CVA tenderness BLADDER/KIDNEY EXAM: Yes no CVA tenderness Back/Pelvis: COMMON NORMALS: no CVA tenderness Extremity: COMMON NORMALS: normal to inspection and full ROM Neuro: COMMON NORMALS: patient oriented x3, moves all extremities, no focal motor deficits and no sensory deficits noted SENSORIUM/ORIENTATION: Yes alert MENINGEAL SIGNS: Yes no meningeal signs Psych: COMMON NORMALS: mental status grossly normal, cooperative and speech normal SPEECH: Yes normal speech Skin: COMMON NORMALS: no rashes or lesions noted GENERAL SKIN EXAM: no rashes or lesions noted Course 2 Vital Signs: Vital signs: Vital Signs Temperature 98.3 F 12/07/24 18:27 Pulse Rate 74 12/07/24 20:30 Respiratory Rate 18 12/07/24 20:26 Blood Pressure 166/106 12/07/24 20:30 Pulse Oximetry 96 12/07/24 20:30 Oxygen Delivery Me thod Room Air 12/07/24 20:30 MDM - Male Medical Decision Making Patient presenting with left abdominal pain and flank pain, history of kidney stone stating this feels similar. Nontoxic on exam, has been hypertensive here likely secondary to the pain. No urinary symptoms. Urinalysis here does not show any infection. Mild leukocytosis, rest of his labs unremarkable. CT of the abdomen and pelvis showing 2 obstructing stones, however small at 4 mm and likely to pass on the round. There is mild hydronephrosis and perirenal nephric fat stranding, but plan for patient to treat outpatient with pain medications, nausea medications, and Flomax. He feels comfortable this plan, has great relief here in the ED after pain medications and is told to strain his urine to obtain stone for biopsy with primary care. He will return with any new or worsening, specifically any fever, vomiting, or any general worsening of condition. Lab Data 12/07/24 18:33 12/07/24 18:33 Radiology Impressions Abdomen/Pelvis CT 12/07/24 18:44 IMPRESSION: 1. There are 2 obstructing 4 mm stones in the proximal left ureter with upstream hydroureter and mild hydronephrosis and perirenal nephric fat stranding. 2. There are 2 obstructing stones in the proximal left ureter measuring up to 4 mm with upstream hydroureter, mild hydronephrosis and perinephric fat stranding. Laboratory Results WBC 14.36 10^3/uL (3.29-11.43) H 12/07/24 18:33 RBC 5.15 10^6/uL (3.85-5.65) 12/07/24 18:33 Hgb 14.90 g/dL (11.27-16.99) 12/07/24 18:33 Hct 43.2 % (37-53) 12/07/24 18:33 MCV 83.9 fl (82-101) 12/07/24 18:33 MCH 28.9 pg (27-33) 12/07/24 18: MCHC 34.5 g/dL (30-55) 12/07/24 18:33 RDW 12.3 % (12.1-15.1) 12/07/24 18:33 Plt Count 355 10^3/cmm (157-399) 12/07/24 18:33 MPV 8.3 fL (7.4-10.4) 12/07/24 18:33 Neut % (Auto) 78.2 % 12/07/24 18:33 Lymph % (Auto) 8.4 % 12/07/24 18:33 [place] % (Auto) 12.2 % 12/07/24 18:33 Eos % (Auto) 0.3 % 12/07/24 18: Baso % (Auto) 0.5 % 12/07/24 18: Neut # (Auto) 11.23 10^3/uL (1.8-7.7) H 12/07/24 18:33 Lymph # (Auto) 1.2 10^3/uL (0.8-4.8) 12/07/24 18:33 [place] # (Auto) 1.8 10^3/uL (0.2-0.9) H 12/07/24 18:33 Eos # (Auto) 0.1 10^3/uL (0.0-0.8) 12/07/24 18:33 Baso # (Auto) 0.1 10^3/uL (0.0-0.1) 12/07/24 18:33 Nucleated RBC % (auto) 0 % 12/07/24 18:33 Nucleated RBCs # 0.0 /100WBC 12/07/24 18:33 Sodium 136 mmol/L (136-145) 12/07/24 18:33 Potassium 4.0 mmol/L (3.5-5.1) 12/07/24 18:33 Chloride 98 mmol/L (98-107) 12/07/24 18:33 Carbon Dioxide 22 mmol/L (22-29) 12/07/24 18:33 Anion Gap 20.0 (5-19) H 12/07/24 18:33 BUN 17 mg/dL (6-20) 12/07/24 18:33 Creatinine 1.1 mg/dL (0.7-1.2) 12/07/24 18:33 GFR Calculation 74.1 mL/min (90-130) L 12/07/24 18: Glucose 105 mg/dL (65-115) 12/07/24 18:33 Calculated Osmolality 284 mOsm/kg (285-295) L 12/07/24 18: Calcium 9.3 mg/dL (8.5-10.5) 12/07/24 18: Total Bilirubin 0.7 mg/dL (0.15-1.2) 12/07/24 18:33 AST 24 U/L (0-40) 12/07/24 18: ALT 39 U/L (0-41) 12/07/24 18: Alkaline Phosphatase 93 U/L (40-130) 12/07/24 18:33 Total Protein 7.9 g/dL (6.6-8.7) 12/07/24 18: Albumin 4.6 g/dL (3.5-5.2) 12/07/24 18:33 Globulin 3.3 g/dL (1.3-4.6) 12/07/24 18:33 Lipase 21 U/L (13-60) 12/07/24 18:33 Urine Color Yellow (Yellow) 12/07/24 20:15 Urine Appearance Clear (CLEAR) 12/07/24 20:15 Urine pH 6.5 (5-7) 12/07/24 20:15 Ur Specific [place] 1.017 (1.005-1.030) 12/07/24 20:15 Urine Protein Negative (Negative) 12/07/24 20: Urine Glucose (UA) Negative (Normal) 12/07/24 20:15 Urine Ketones Trace (Negative) 12/07/24 20: Urine Blood 1+ (Negative) A 12/07/24 20: Urine Nitrate Negative (Negative) 12/07/24 20: Urine Bilirubin Negative (Negative) 12/07/24 20: Urine Urobilinogen 0.2 mg/dL (Negative) 12/07/24 20:15 Ur Leukocyte Esterase Negative (Negative) 12/07/24 20:15 Urine RBC 10-15 /hpf (0-2) H 12/07/24 20:15 Urine WBC 0-4 /hpf (0-5) H 12/07/24 20:15 Ur Squamous Epith Cells 0-4 /hpf (0-5) H 12/07/24 20:15 Amorphous Sediment Not Reportable 12/07/24 20:15 Urine Bacteria Trace /hpf (NONE) 12/07/24 20:15 All radiology interpretation(s) finalized by discharge Discharge Plan Discharge Patient Disposition: Home Clinical Impression: Ureterolithiasis Condition: Stable Prescriptions: New ondansetron HCl 4 mg tablet 4 mg PO Q8H Qty: 30 0RF hydrocodone-acetaminophen 7.5-325 mg tablet 1 tab PO Q8H PRN (Reason: pain) Qty: 15 0RF tamsulosin 0.4 mg capsule 0.4 mg PO DAILY Qty: 7 0RF No Action lisinopril-hydrochlorothiazide 10-12.5 mg tablet PO prednisone 20 mg tablet 60 mg PO DAILY 5 Days Qty: 15 0RF ketorolac 10 mg tablet 10 mg PO Q8H 5 Days Qty: 15 0RF Rx Instructions: maximum total duration of 5 days from all oral, intranasal, or parenteral formulations Discharge Orders: Discharge ED (Routine); Ordered 12/07/24 Ordered By: Jim Dye Referrals: David Shane MD [Primary Care Provider] Patient Instructions: Patient Portal & Parvez Instructions Activity Restrictions/Additional Instructions: Ureteral Stone Discharge Diagnosis: You have two small stones (4 mm) in your left ureter causing some blockage, but there is no sign of infection in your urine. Most stones of this size pass on their own. Medications: - [place] 7.5/325 mg: Take as prescribed for pain. Use the lowest effective dose and avoid driving or operating machinery if drowsy. - Zofran (ondansetron): Use as needed for nausea. - Flomax (tamsulosin) 0.4 mg daily: This medication may help relax your ureter and facilitate stone passage, though its benefit is greater for stones larger than 5 mm. For stones your size, spontaneous passage is likely, but Flomax is still sometimes used. Hydration and Diet: - Drink plenty of fluids (aim for at least 2-3 liters per day) to help flush the stones. - Limit salt intake and maintain a balanced diet. What to Expect: - You may experience pain, blood in urine, or mild discomfort as the stones pass. - Most stones of this size pass within a few weeks. When to Seek Immediate Care: - Fever, chills, or signs of infection (burning with urination, foul-smelling urine) - Severe or worsening pain not controlled by medication - Vomiting preventing fluid intake - Inability to urinate - New or worsening symptoms Follow-Up: - Schedule a follow-up visit with your primary care provider as instructed. - If the stones do not pass or symptoms worsen, further evaluation may be needed. Additional Instructions: - Strain your urine if possible to catch the stone for analysis. - Take all medications as directed and do not exceed recommended doses. If you have any questions or concerns, contact your healthcare provider. Print Language: Thai Coding Level of Care Code ED Miter Operator for Anders Weber
[2024-12-07] MEDS: ondansetron 2 mg/ML SDV 2 mL 4 MG IVP ×2 (19:07→21:34)
[2024-12-07] MEDS: morphine 4 mg/mL SDV 1 mL IVP (19:16)
[2024-12-07 20:22] LABS: Glucose Urine UA Negative (Normal); Nitrate Urine Negative (Negative); Specific Gravity, Urine 1.017 (1.005-1.030)
[2024-12-07] MEDS: fentaNYL 50 mcg/mL INJ 2mL IVP (20:26)
[2024-12-07 20:38] LABS: Add Urine Microscopic? YES
[2024-12-07] MEDS: HYDROcodone-acetaminophen 7.5-325 mg Tablet 2 TAB PO (21:33)
[2024-12-07] MEDS: fentaNYL 50 mcg/mL INJ 2mL 25 MCG IVP (21:34)
== END 2024-12-07 21:55 | disposition home or self-care (01) ==
PROVIDERS: Emergency Medicine; Emergency Provider Physician Assistant; PCP Family Medicine
DX: N20.1 Calculus of ureter (principal); Z87.442 Personal history of urinary calculi
CPT/HCPCS: 36415; 74176; 80053; 81001; 83690; 85025; 96361; 96374; 96375; 99285; J2270; J2405; J3010; J7030; J9999

== ENCOUNTER 2024-12-17 21:55 | Emergency (ER) | payer OTHER, SELFPAY ==
[2024-12-17 21:57] VITALS: BP 184/121; PULSE 88; RESP 16; TEMP 36.9; O2SAT 96; BMI 30.3
--- OUTSIDE RECORDS SUMMARY | 2024-12-17 22:06 | XMS_ITS | Encounter Summary ---
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
--- OUTSIDE RECORDS SUMMARY | 2024-12-17 22:06 | XMS_ITS | Encounter Summary ---
Author Organization [facility] Address [address] [place] [address] Care Team Providers Care Division Merchandise Manager Name Role Phone Unavailable Primary Care Provider Unavailabl e Encounter Details Date Type Department Care Team (Late st Contact Info) Description 02/02/1997 Outpatient Historical [facility]-Carlos Espinal [place] [address] [place] [address] Social History Tobacco Use Types Packs/Day Years Used Date Smoking Tobacco: Never Assessed Sex and Gender Information Value Date Recorded Sex Assigned at Not on file 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
--- OUTSIDE RECORDS SUMMARY | 2024-12-17 22:06 | XMS_ITS | Clinical Summary ---
[facility] Organization [facility] Address [address] 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
--- OUTSIDE RECORDS SUMMARY | 2024-12-17 22:06 | XMS_ITS | Patient Health Record ---
Author Organization [facility] Address [address] [address] Care Team Providers Care Mold Tooling Technician Name Role Phone Bridget Sahu Unavailable [phone] Allergies No Known Allergies Reason For Referral [...] W/U Status Risk Notes Problem Essential hypertension (72796969) Essential (primary) hypertension (I10) Active confirmed Plan Of Treatment No Information Insurance Providers Payer Name Payer Address Payer Phone Subscriber Number Group Number Insured Name Patient Relationship to Insured Coverage Start Date Coverage End Date [employer] [address] [place] [phone] [id number] Valerie Garcia Self - patient is the insured Medical (General) History Medical History History ICD Code hypertension
--- OUTSIDE RECORDS SUMMARY | 2024-12-17 22:06 | XMS_ITS | Encounter Summary ---
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
--- OUTSIDE RECORDS SUMMARY | 2024-12-17 22:07 | XMS_ITS | Patient Health Record ---
Author Organization [facility] Address [address] [place] [address] Care Team Providers Care Soft Metals Hand Engraver Name Role Phone Marilee León Unavailable [phone] Debra Rivero Unavailable [phone] EdeErwin ramos Unavailable [phone] Sonali Hoffman Unavailable Allergies No Known Allergies Results Component Value Reference Range Flag Notes Urine Drug Screen (cup read) - 30949 Reviewed date:12/05/2024 11:23:25 AM Interpretation:Negative Performing Lab: Notes/Report: Negative Tox Results Reviewed date:10/09/2024 11:16:06 AM Interpretation: Performing Lab: Notes/Report: Urine Confirmation Panel (in strument) - [id number] Reviewed date:10/09/2024 11:12:12 AM Interpretation: Performing Lab: [...] the U.S. Food and Drug Administration. Gabapentin >90703 <225 ng/mL > This test was developed [...] Administration. Urine Drug Screen (cup read) - 58321 Reviewed date:10/07/2024 10:40:07 AM Interpretation: Performing Lab: Notes/Report: AMP Neg ANTOINE Neg BUP Neg BZO Neg MDMA Neg OPI Neg PCP Neg OXY Neg MTD Neg MAMP Neg Tox Results Reviewed date:09/12/2024 09:25:51 AM Interpretation: Performing Lab: Notes/Report: Urine Confirmation Panel (in strument) - [id number] Reviewed date:09/10/2024 05:12:13 PM Interpretation: Performing Lab: [...] the U.S. Food and Drug Administration. Gabapentin >84257 <225 ng/mL > This test was developed [...] Administration. Urine Drug Screen (cup read) - 50858 Reviewed date:09/05/2024 09:34:26 AM Interpretation: Performing Lab: Notes/Report: OPI + Tox Results Reviewed date:08/11/2024 10:31:49 AM Interpretation: Performing Lab: Notes/Report: Urine Drug Screen (cup read) - 50258 Reviewed date:08/06/2024 09:30:10 AM Interpretation:Negative Performing Lab: Notes/Report: Negative Urine Confirmation Panel (in strument) - [id number] Reviewed date:08/08/2024 02:45:23 PM Interpretation: Performing Lab: [...] by the U.S. Food and Drug Administration. 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 De nies Do you drink alcohol? Socially Problems Problem Type SNOMED Code ICD Code Onset Dates Problem Status W/U Status Risk Notes Problem Chronic pain syndrome (731530440) Chronic pain syndrome (G89.4) Active confirmed Problem Lumbar radiculopathy (458040777) Lumbar radiculopathy (M54.16) Active confirmed Problem Lumbar spondylosis (434393070) Lumbar spondylosis (M47.816) Active confirmed Problem Difficulty sleeping (078967063) Difficulty sleeping (G47.9) Active confirmed Problem Lumbar pain (924891186) Lumbar pain (M54.50) Active confirmed Problem Long-term current use of drug therapy (047268136) Analgesic use (Z79.899) Active confirmed Vital Signs Height-cm 185.42 cm 12/05/2024 Weight-kg 107.96 kg 12/05/2024 Height 73 in 12/05/2024 Weight 238 lbs 12/05/2024 BMI 31.4 kg/m2 12/05/2024 Procedures Procedure Date Ordered Date Performed Result Body Sit e Epidural, Lumbar/Sacral (Cau nikia), w/ imaging guidance - 82202 10/29/2024 10/29/202410-29 Encounters Encounter Location Date Provider Diagnosis [facility] [address] [address] 09/05/2024 Marilee León Chronic pain syndrome G89.4 ; Lumbar radiculopathy M54.16 ; Lumbar spondylosis M47.816 and Analgesic use Z79.899 Formerly [facility] [address] [place] [address] 12/05/2024 Marilee Mau Chronic pain syndrome G89.4 ; Lumbar radiculopathy M54.16 ; Lumbar spondylosis M47.816 and Analgesic use Z79.899 Formerly [facility] [place] [address] 10/29/2024 Erwin Owen Lumbar radiculopathy M54.16 [facility]ly [facility] [address] [place] [address] 10/07/2024 Marilee Mau Chronic pain syndrome G89.4 ; Lumbar radiculopathy M54.16 ; Lumbar spondylosis M47.816 and Analgesic use Z79.899 [facility] [address] [place] [address] 08/06/2024 Erwin Owen Chronic pain syndrome G89.4 ; Difficulty sleeping G47.9 ; Lumbar pain M54.50 ; Lumbar radiculopathy M54.16 ; Lumbar spondylosis M47.816 and Analgesic use Z79.899 [facility]ly [facility] [address] [place] [address] 09/22/2024 Debra Rivero [facility] [address] [place] [address] 09/05/2024 Debra Rivero Chronic pain syndrome G89.4 [facility] [address] [place] [address] 12/05/2024 Sonali grant Lumbar radiculopathy M54.16 [facility] [address] [place] [address] 10/07/2024 Erwin Brayden Chronic pain syndrome G89.4 and Lumbar radiculopathy M54.16 Assessments Encounter Date Diagnosis (ICD Code) Assessment Notes Treatment Notes Treatment Clinical Notes Section Notes 08/06/2024 Chronic pain syndrome (ICD-10 - G89.4) [...] the procedure and all questions were answered. 08/06/2024 Difficulty sleeping (ICD-10 - G47.9) 09/05/2024 Chronic pain syndrome (ICD-10 - G89.4) 10/07/2024 Chronic pain syndrome (ICD-10 - G89.4) [...] effects are noted. Last UDS and AR COUNTER CLERK TRACTOR PARTS reviewed today. Patient is advised that best [...] on the LESI's PA and Donahue poe 10/29/2024 Lumbar radiculopathy (ICD-10 - M54.16) 12/05/2024 Chronic [...] effects are noted. Last UDS and AR COUNTER CLERK TRACTOR PARTS reviewed today. Patient is advised that best [...] given 12/05/2024 Lumbar radiculopathy (ICD-10 - M54.16) 09/05/2024 Chronic pain syndrome (ICD-10 - G89.4) [...] effects are noted. Last UDS and AR COUNTER CLERK TRACTOR PARTS reviewed today. Patient is advised that best [...] policy. 09/05/2024 Lumbar radiculopathy (ICD-10 - M54.16) 10/07/2024 Chronic pain syndrome (ICD-10 - G89.4) 09/05/2024 Lumbar spondylosis (ICD-10 - M47.816) 12/05/2024 Lumbar radiculopathy (ICD-10 - M54.16) RECOMMEND [...] and all questions were answered. 10/07/2024 Lumbar radiculopathy (ICD-10 - M54.16) 08/06/2024 Lumbar pain (ICD-10 - M54.50) 08/06/2024 Lumbar radiculopathy (ICD-10 - M54.16) 10/07/2024 Lumbar spondylosis (ICD-10 - M47.816) 12/05/2024 Lumbar spondylosis (ICD-10 - M47.816) RECOMMEND [...] and provider understand and agree that, per [facility] LCD, medial branch blocks will be performed [...] the procedure and all questions were answered. 09/05/2024 Analgesic use (ICD-10 - Z79.899) 10/07/2024 Lumbar radiculopathy (ICD-10 - M54.16) 12/05/2024 Analgesic use (ICD-10 - Z79.899) 10/07/2024 Analgesic use (ICD-10 - Z79.899) 08/06/2024 Lumbar spondylosis (ICD-10 - M47.816) 08/06/2024 Analgesic use (ICD-10 - Z79.899) 08/06/2024 Other I, Kathy Michelle, am scribing for Dr. Owen. I, Dr. Owen, personally performed the services described in this documentation, as scribed by Kathy Michelle, and it is both accurate and complete. Plan Of Treatment Future Test Test Name Order Date Epidural, Lumbar/Sacral (Caudal), w/ onofre ging guidance - [id number] 12/08/2024 Facet Inj. / MBB Lumbar/Sacral, 2 levels - 53318, 30079 12/09/2024 Facet Inj. / MBB Lumbar/Sacral, 2 levels - 19835, 77870 12/10/2024 Insurance Providers Payer Name Payer Address Payer Phone Subscriber Number Group Number Insured Name Patient Relationship to Insured Coverage Start Date Coverage End Date [facility] [address] [place] [address] [id number] Valerie Garcia Self - patient is the insured 4 Medical (General) History Medical History History ICD Code kidney stones
--- OUTSIDE RECORDS SUMMARY | 2024-12-17 22:07 | XMS_ITS | Encounter Summary ---
Author Organization [facility] Address [address] [place] [address] Care Team Providers Care Supervisor Shearing Name Role Phone Unavailable Primary Care Provider Unavailabl e Encounter Details Date Type Department Care Team (Latest Contact Info) Description 02/02/1997 Outpatient Historical [facility] [address] [place] [id number] Austin Sun MD NO ADDRESS ON FILE Other specific developmental learning difficulties (Primary Dx) Social History Tobacco Use Types Packs/Day Years Used Date Smoking Tobacco: Never Assessed Sex and Gender Information Value Date Recorded Sex Assigned at Not on file Legal Sex Male 2:52 AM [employer]ING [employer] Gender Identity Not on file Sexual Orientation Not on file documented as of this encounter Plan of Treatment Not on file documented as of this encounter Visit Diagnoses Diagnosis Other specific developmental learning difficulties- Primary documented in this encounter
--- NOTE | 2024-12-17 22:21 | XRR_ITS ---
PROCEDURE INFORMATION: Exam: XR Chest Exam date and time: 12/17/2024 10:25 PM Age: 39 years old Clinical indication: Pain; Angina pectoris; Additional info: Cp TECHNIQUE: Imaging protocol: Radiologic exam of the chest. Views: 1 view. COMPARISON: CT kidney stone [id number] 12/07/2024 7:31 PM FINDINGS: Lungs: Unremarkable. No consolidation. Pleural spaces: Unremarkable. No pleural effusion. No pneumothorax. Heart/Mediastinum: Unremarkable. No cardiomegaly. Bones/joints: Unremarkable. XR/XR chest 1V portable [id number] IMPRESSION: No acute findings.
[2024-12-17 23:07] VITALS: PULSE 84; O2SAT 99
[2024-12-17 23:15] VITALS: BP 157/95; PULSE 82; O2SAT 98
[2024-12-17 23:19] LABS: Hematocrit 43.7 % (37-53); Hemoglobin 14.60 g/dL (11.27-16.99); Mean Corpuscular HGB Conc 33.4 g/dL (30-55); Mean Corpuscular Hemoglobin 28.8 pg (27-33); Mean Corpuscular Volume 86.2 fl (82-101); Nucleated Red Blood Cells % 0 %; Platelet Count 397 10^3/cmm (157-399); Red Blood Count 5.07 10^6/uL (3.85-5.65); White Blood Count 8.20 10^3/uL (3.29-11.43)
[2024-12-17 23:30] VITALS: BP 151/104; PULSE 77; O2SAT 97
[2024-12-17 23:34] LABS: Troponin(5th) Baseline < 6 ng/L (0-15)
[2024-12-17 23:43] LABS: Alanine Aminotransferase 22 U/L (0-41); Albumin Level 4.5 g/dL (3.5-5.2); Alkaline Phosphatase 100 U/L (40-130); Anion Gap 17.2 (5-19); Aspartate Amino Transferase 14 U/L (0-40); Blood Urea Nitrogen 10 mg/dL (6-20); Calcium 9.4 mg/dL (8.5-10.5); Carbon Dioxide 24 mmol/L (22-29); Chloride 103 mmol/L (98-107); Creatinine Clr Calc Pharmacy 124.5422; Globulin 2.4 g/dL (1.3-4.6); Glucose 99 mg/dL (65-115); Magnesium 2.1 mg/dL (1.7-2.3); NT Pro B Type Natriuretic Pept < 36 pg/mL (0-125); Osmolality Calculated 289 mOsm/kg (285-295); Potassium 4.2 mmol/L (3.5-5.1); Sodium 140 mmol/L (136-145); Total Protein 6.9 g/dL (6.6-8.7)
[2024-12-17 23:45] VITALS: BP 143/80; PULSE 72; O2SAT 99
[2024-12-18] VITALS: BP 129/74; PULSE 74; O2SAT 98
[2024-12-18 00:15] VITALS: BP 128/69; PULSE 79; O2SAT 96
--- NOTE | 2024-12-18 00:21 | ECG_ITS ---
[facility]: 2024-12[facility]17 Pat Name: Valerie Garcia Department: Room: Gender: Male Clinic Assistant: : 1985 Requested By: Hugo Forte Order Number: [id number] Liu MD: JULIÁN MILLER Measurements Intervals [place] Rate: 78 P: 43 MS: 170 QRS: -1 QRSD: 116 T: 21 QT: 354 QTc: 405 Interpretive Statements SINUS RHYTHM WITH SINUS ARRHYTHMIA MODERATE INTRAVENTRICULAR CONDUCTION DELAY [110+ ms QRS DURATION] No previous ECG available for comparison Electronically Signed On 12-20-2024 21:17:01 CDT by JULIÁN MILLER [id number]
--- NOTE | 2024-12-18 00:28 | ED_ITS ---
HPI - Chest Pain 2 General: Chief Complaint: Chest Pain Stated Complaint: Blood pressure Time Seen by Provider: 12/17/24 21:59 History of Present Illness: Patient is a 39 yoM male with a history of hypertension and chronic back pain (bulging disc, arthritis) who presents with feeling off , diaphoresis, anxiety, and elevated blood pressure in the 170s. He reports feeling unwell earlier in the day, with a transient episode of left-sided subcostal pressure after eating (resolved), and ongoing back pain. He denies chest pain, significant gastrointestinal symptoms, or other acute complaints. 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 He has a history of taking lisinopril 10 mg daily for hypertension and tramadol for back pain, though he dislikes tramadol due to adverse effects and has discontinued its use. He also reports difficulty sleeping, occasionally using tramadol or Tylenol PM, but finds these unsatisfactory. No history of diabetes or heart disease; last cardiac stress test was 5-6 years ago and was normal. Family history notable for diabetes in grandfather. Is an occasional smoker, no history of cholesterol issues, no early family cardiac history before 50. No history of blood clots, no recent immobilization, no leg pain, no hormone supplementation. Associated symptoms: Reports diaphoresis and palpitations Risk Factors: Coronary artery disease risk factors: smoking history and hypertension Related Data Home Medications ?Medication ?Instructions ?Recorded ?Confirmed lisinopril 10 tab PO 06/28/23 06/28/23 mg-hydrochlorothiazide 12.5 mg tablet Previous Rx's ?Medication ?Instructions ?Recorded ketorolac 10 mg tablet 10 mg PO Q8H pain 5 days #15 tabs 06/28/23 prednisone 20 mg tablet 60 mg (3 x 20 mg) PO DAILY 5 days 06/28/23 #15 tabs hydrocodone 7.5 mg-acetaminophen 1 tab PO Q8H PRN pain #15 tabs 12/07/24 325 mg tablet ondansetron HCl 4 mg tablet 4 mg PO Q8H #30 tabs 12/07 tamsulosin 0.4 mg capsule 0.4 mg PO DAILY #7 caps 11/19 11/13 buspirone 10 mg tablet 10 mg PO BID anxiety #20 tab s 12/18/24 trazodone 50 mg tablet 50 mg PO DAILY PRN sleep #10 tabs 12/18/24 Allergies Allergy/AdvReac Type Severity Reaction Status Date / Time No Known Allergies Allergy Verified 12/17/24 22:04 Review of Systems 2 General: Reports: 10 or more systems reviewed and unremarkable except in HPI and below Const: Reports: fatigue and diaphoresis Card: Reports: chest pain and palpitations Psych: Reports: anxiety Physical Exam 2 Narrative: EXAM NARRATIVE: Patient overall well-appearing, vital stable on arrival, mildly hypertensive, nontoxic, no acute distress. Normal sinus rhythm with no murmurs, no leg swelling, 2+ pulses throughout, good cap refill. Saturating well on room air, breathing comfortably, speaking in full sentences without issue, no increased work of breathing. GCS 15. Does appear anxious, no SI or HI. Course 2 Vital Signs: Vital signs: Vital Signs Temperature 98.5 F 12/17/24 21:57 Pulse Rate 72 12/17/24 23:45 Respiratory Rate 16 12/17/24 21:57 Blood Pressure 143/80 12/17/24 23:45 Pulse Oximetry 99 12/17/24 23:45 Oxygen Delivery Me thod Room Air 12/17/24 23:45 MDM - Chest Pain Medical Decision Making -ddx: Anxiety, ACS, hypertensive urgency versus emergency, URI, pneumonia, viral syndrome, dehydration, electrolyte abnormality - Patient overall well-appearing, does appear anxious, has been under increased stress at his job even more so than normal recently. Has felt a little off today but cannot further describe that feeling, has had episodes of sweats, palpitations. After he ate dinner tonight which was lemon pepper chicken he had an episode of left upper quadrant/chest pain that felt like indigestion and quickly resolved, nothing exertional, no vomiting. Will evaluate with cardiac labs, EKG and chest x-ray, he would like to trial something for his increased anxiety at this time, we will trial buspirone. - Laboratory studies overall very reassuring, troponin negative and EKG with no dynamic changes compared to previous. Labs with no systemic infection or inflammation, no endorgan damage, no BNP elevation, no BONNIE. Patient felt much improved after his dose of buspirone, he was actually sleeping on reevaluation, blood pressure had decreased 40 points on its own. With feeling better, no repeat episodes of chest pain, low concern for ACS, hear score of 2, has close outpatient follow-up for if these pains persist but he was stable for discharge with a trial of buspirone and trazodone as needed for insomnia, patient appreciative of care and discharged in stable condition, strict return precautions given. Lab Data 12/17/24 22:50 12/17/24 22:50 Radiology Impressions Chest X-Ray 12/17/24 22:21 IMPRESSION: No acute findings. Laboratory Results WBC 8.20 10^3/uL (3.29-11.43) 12/17/24 22:50 RBC 5.07 10^6/uL (3.85-5.65) 12/17/24 22:50 Hgb 14.60 g/dL (11.27-16.99) 12/17/24 22:50 Hct 43.7 % (37-53) 12/17/24 22:50 MCV 86.2 fl (82-101) 12/17/24 22:50 MCH 28.8 pg (27-33) 12/17/24 22:50 MCHC 33.4 g/dL (30-55) 12/17/24 22:50 RDW 12.3 % (12.1-15.1) 12/17/24 22:50 Plt Count 397 10^3/cmm (157-399) 12/17/24 22:50 MPV 8.4 fL (7.4-10.4) 12/17/24 22:50 Neut % (Auto) 65.1 % 12/17/24 22:50 Lymph % (Auto) 21.5 % 12/17/24 22:50 Blair % (Auto) 11.6 % 12/17/24 22:50 Eos % (Auto) 0.6 % 12/17/24 22:50 Baso % (Auto) 0.7 % 12/17/24 22:50 Neut # (Auto) 5.34 10^3/uL (1.8-7.7) 12/17/24 22:50 Lymph # (Auto) 1.8 10^3/uL (0.8-4.8) 12/17/24 22:50 Blair # (Auto) 1.0 10^3/uL (0.2-0.9) H 12/17/24 22:50 Eos # (Auto) 0.1 10^3/uL (0.0-0.8) 12/17/24 22:50 Baso # (Auto) 0.1 10^3/uL (0.0-0.1) 12/17/24 22:50 Nucleated RBC % (auto) 0 % 12/17/24 22:50 Nucleated RBCs # 0.0 /100WBC 12/17/24 22:50 Sodium 140 mmol/L (136-145) 12/17/24 22:50 Potassium 4.2 mmol/L (3.5-5.1) 12/17/24 22:50 Chloride 103 mmol/L (98-107) 12/17/24 22:50 Carbon Dioxide 24 mmol/L (22-29) 12/17/24 22:50 Anion Gap 17.2 (5-19) 12/17/24 22:50 BUN 10 mg/dL (6-20) 12/17/24 22:50 Creatinine 1.0 mg/dL (0.7-1.2) 12/17/24 22:50 GFR Calculation 82.8 mL/min (90-130) L 12/17/24 22:50 Glucose 99 mg/dL (65-115) 12/17/24 22:50 Calculated Osmolality 289 mOsm/kg (285-295) 12/17/24 22:50 Calcium 9.4 mg/dL (8.5-10.5) 12/17/24 22:50 Magnesium 2.1 mg/dL (1.7-2.3) 12/17/24 22:50 Total Bilirubin 0.2 mg/dL (0.15-1.2) 12/17/24 22:50 AST 14 U/L (0-40) 12/17/24 22:50 ALT 22 U/L (0-41) 12/17/24 22:50 Alkaline Phosphatase 100 U/L (40-130) 12/17/24 22:50 Troponin T Baseline < 6 ng/L (0-15) 12/17/24 22:50 NT-Pro-B Natriuret Pep < 36 pg/mL (0-125) 12/17/24 22:50 Total Protein 6.9 g/dL (6.6-8.7) 12/17/24 22:50 Albumin 4.5 g/dL (3.5-5.2) 12/17/24 22:50 Globulin 2.4 g/dL (1.3-4.6) 12/17/24 22:50 All radiology interpretation(s) finalized by discharge EKG Data EKG 1: Interpretation: Normal sinus rhythm at 78 bpm, no CO, QRS or QTc prolongation, no PVCs, no ST elevation or depression, normal axis Clincial Decision Support The following clinical decision support tools were used to aid in care of the patient HEART Score -> History: Moderately Suspicious, EKG: Normal, Age: Less than 45 yrs, Risk Factors: 1 or 2 Risk Factors, Troponin: Baseline Trop <16 ng/L. Resulting HEART Score: 2. Discharge Plan Discharge Patient Disposition: Home Clinical Impression: Atypical chest pain, Stress Condition: Stable Prescriptions: New trazodone 50 mg tablet 50 mg PO DAILY PRN (Reason: sleep) Qty: 10 0RF buspirone 10 mg tablet 10 mg PO BID Qty: 20 0RF No Action lisinopril-hydrochlorothiazide 10-12.5 mg tablet PO prednisone 20 mg tablet 60 mg PO DAILY 5 Days Qty: 15 0RF ketorolac 10 mg tablet 10 mg PO Q8H 5 Days Qty: 15 0RF Rx Instructions: maximum total duration of 5 days from all oral, intranasal, or parenteral formulations ondansetron HCl 4 mg tablet 4 mg PO Q8H Qty: 30 0RF hydrocodone-acetaminophen 7.5-325 mg tablet 1 tab PO Q8H PRN (Reason: pain) Qty: 15 0RF tamsulosin 0.4 mg capsule 0.4 mg PO DAILY Qty: 7 0RF Discharge Orders: Discharge ED (Routine); Ordered 12/18/24 Ordered By: Hugo Forte Referrals: David Shane MD [Primary Care Provider] Patient Instructions: Opioid Safety, Pain Management, Patient Portal & Parvez Instructions Activity Restrictions/Additional Instructions: You were seen for your chest pain and feeling off, you were evaluated with a chest x-ray, EKG and laboratory studies that were ultimately reassuring for no emergent conditions today. You improved with a low-dose anxiety medication and so a small prescription of this will be written for for you to try, this is nonsedating and you can take it at work, use 10 mg every 12 hours as needed, if this seems to work for you, further discussed a long-term prescription with your primary care physician. In addition, the trazodone is to help with any insomnia and to help you sleep, the normal dose is 50 mg 30 minutes before you go to bed but on the first night, split the pill and take half of it to see how it affects you, it should not be sedating in the small dosages. Continue to take your blood pressure medication as originally prescribed. Return to the ED with severe worsening of your symptoms, crushing chest pains, difficulties breathing, episodes of passing out, any other emergent concerns. Print Language: Italian Coding Level of Care Code ED Program Manager Rn for Chg [facility] Heart Score HEART Score Components History: Moderately Suspicious EKG: Normal Age: Less than 45 yrs Risk Factors: 1 or 2 Risk Factors Troponin: Baseline Trop <16 ng/L HEART Score RESULT HEART Score: 2
[2024-12-18 00:30] VITALS: BP 140/102; PULSE 84; O2SAT 97
[2024-12-18 00:45] VITALS: BP 140/76; PULSE 60; O2SAT 97
[2024-12-18 00:55] VITALS: BP 137/86; PULSE 63; O2SAT 98
[2024-12-18] MEDS: HYDROcodone-acetaminophen 5-325 mg Tablet 1 TAB PO (01:03)
== END 2024-12-18 01:06 | disposition home or self-care (01) ==
PROVIDERS: Emergency Provider Student in an Organized Health Care Education/Training Program; PCP Family Medicine
DX: R07.89 Other chest pain (principal); F43.9 Reaction to severe stress, unspecified
CPT/HCPCS: 36415; 71045; 80053; 83735; 83880; 84484; 85025; 93005; 99285; J9999